=== PATIENT | female | born 1945 | race Caucasian/White ===

== ENCOUNTER 2020-02-13 07:41 | Inpatient (IN) | payer MEDICARE ==
[~2020-02-13 07:41] MED LIST: Midazolam 1 MG/ML 2 ML SDV ONE; Propofol 200 MG/20 ML SDV ONE; fentaNYL 100 MCG/2 ML SDV ONE
[2020-02-13] MEDS ORDERED: Sodium Chloride 0.9% 1,000 ML IV SCH (08:15)
--- NOTE | 2020-02-13 09:21 | PCM.HP.2 ---
H&P History of Present Illness - General Date of Service: 02/13/20 Admit Problem/Dx: Hypotension - History of Present Illness Initial Comments - Free Text/Narative: Jocelyn has been having significant abdominal pain after she eats and also is vomiting. This has been going on for several months and has lost 30 lbs. She has not noticed any blood when she vomits. She has generalized weakness. She does have heartburn. She did faint during the night last night. Her blood pressure 3 days ago was 134/94 with pulse of 90. She was admitted from the [facility] department and she was scheduled to have EGD blood pressure was found to be excessive below. Blood was drawn and creatinine was found to be 6.8. His BUN 142 and potassium 2.6 Duration of Symptoms: Reports: Other (Weight loss now over 30 pounds) Associated Symptoms: Reports: Loss of Appetite, Nausea/Vomiting, Syncope, Weakness - Related Data Allergies/Adverse Reactions: Allergies Allergy/AdvReac Type Severity Reaction Status Date / Time tramadol Allergy Rash Verified 02/13/20 08:01 Home Medications: Home Meds Rosuvastatin Calcium 20 mg PO DAILY 02/12/20 [History] amLODIPine Besylate [Amlodipine Besylate] 5 mg PO DAILY 02/12/20 [History] hydroCHLOROthiazide [Hydrochlorothiazide] 12.5 mg PO DAILY 02/12/20 [History] lisinopriL [Lisinopril] 40 mg PO DAILY 02/12/20 [History] Past Medical History Cardiovascular History: Reports: High Cholesterol, Hypertension Gastrointestinal History: Reports: GERD, Other (See Below) Other Gastrointestinal History: nausea and vomiting with abdominal pain and weightloss Genitourinary History: Reports: None 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: Musculoskeletal History: Reports: Back Pain, Chronic, Neck Pain, Chronic, Other (See Below) Dermatologic History: Reports: Eczema - Past Surgical History Cardiovascular Surgical History: Reports: None GI Surgical History: Reports: Cholecystectomy Female Surgical History: Reports: Tubal Ligation Musculoskeletal Surgical History: Reports: Knee Replacement Social & Family History - Family History Family Medical History: Noncontributory - Tobacco Use Tobacco Use Status *Q: Never Tobacco User - Caffeine Use Caffeine Use: Reports: Soda - Recreational Drug Use Recreational Drug Use: No H&P Review of Systems - Review of Systems: Review Of Systems: See Below General: Reports: Weakness, Fatigue, Decreased Appetite, Weight Loss HEENT: Reports: Vertigo Pulmonary: Reports: No Symptoms Cardiovascular: Reports: No Symptoms Gastrointestinal: Reports: Abdominal Pain, Nausea, Vomiting Musculoskeletal: Reports: No Symptoms Skin: Reports: No Symptoms Psychiatric: Reports: No Symptoms Neurological: Reports: Syncope, Difficulty Walking, Weakness, Gait Disturbance Exam - Exam Exam: See Below - Vital Signs Vital Signs: Last Vital Signs Temp 97.7 F 02/13/20 08:20 Pulse 84 02/13/20 08:20 Resp 16 02/13/20 08:20 BP 76/44 L 02/13/20 08:20 Pulse Ox - Exam General: Alert, Oriented, 4 HEENT: PERRLA, Hearing Intact, Mucosa Moist & [place], Nares Patent, Normal Nasal Septum, Posterior Pharynx Clear, Conjunctiva Clear, EOMI, EACs Clear, TMs Clear Neck: Supple, Trachea Midline, 2 Lungs: Clear to Auscultation, Normal Respiratory Effort Cardiovascular: Regular Rate, Regular Rhythm GI/Abdominal Exam: Normal Bowel Sounds, Soft, Non-Tender, No Organomegaly, No Distention, No Abnormal Bruit, No Mass, Pelvis Stable Extremities: Normal Inspection, Normal Range of Motion, Non-Tender, No Pedal Edema, Normal Capillary Refill Peripheral Pulses: 1+: Radial (L), Radial (R) Skin: Warm Neuro Extensive - Mental Status: Alert, Oriented x3, Normal Mood/Affect, Normal Cognition DTR: 1+: Bicep (L), Bicep (R) Psychiatric: Alert, Normal Affect, Normal Mood - Patient Data Result Diagrams: 02/14/20 05:11 02/14/20 05:11 Sepsis Event Note - Focused Exam Vital Signs: Vital Signs Temp Pulse Resp BP 02/13/20 08:20 97.7 F 84 16 76/44 L Problem List Initiated/Reviewed/Updated: Yes Orders Last 24hrs: Active Orders 24 hr Category Date Time Status CBC W/O DIFF,HEMOGRAM [HEME] Routine Lab 02/13/20 08:44 Ordered COMPREHENSIVE METABOLIC PN,CMP [CHEM] Routine Lab 02/13/20 08:45 Ordered TSH ULTRASENSITIVE [CHEM] Routine Lab 02/13/20 08:45 Ordered Sodium Chloride 0.9% [Normal Saline] 1,000 ml Med 02/13/20 08:15 Active IV ASDIRECTED Medication Orders Sodium Chloride (Normal Saline) 1,000 mls @ 100 mls/hr IV ASDIRECTED [facility] Last Admin: 02/13/20 08:20 Dose: 100 mls/hr Documented by: AZAR Assessment/Plan Comment:: Assessment/Plan: #1. Dehydration with #2. Acute renal failure and #3. Severe hypokalemia. She's been vomiting and she is severely dehydrated which is feeling is the cause of her renal failure as well as hypokalemia. I put her in the ICU because of her severe condition and will hydrate her and monitor her blood pressure and renal functions closely. #4. Abdominal pain: This is being evaluated as soon as she is medically stable. She has lost over 30 pounds recently. #5. Hypotension: This will hopefully improve with hydration. #6. History of HTN on medication pm the past. #7. Weight loss: Etiology unknown at the present time if there is an abdominal process causing her nausea and vomiting and lack of appetite. Some of the weight loss is of course due to severe dehydration. #8. History of HLD: - Mortality Measure Prognosis:: Good
[2020-02-13] MEDS ORDERED: Dextrose 5%-0.9% NaCl 1,000 ML IV SCH ×2 (09:45→10:00)
[2020-02-13] MEDS ORDERED: Lactated Ringers 1,000 ML IV SCH ×2 (10:00→10:45)
[2020-02-13] MEDS: Potassium Chloride 20 MEQ, Lidocaine 1% 2 ML in Sodium Chloride 0.9% 100 ML IV SCH ×6 (10:35→21:21)
[2020-02-13] MEDS ORDERED: Lactated Ringers 500 ML IV ONE (11:45)
[2020-02-13] MEDS ORDERED: Lactated Ringers 1,000 ML IV ONE (11:45)
[2020-02-13] MEDS ORDERED: Dextrose 5%-0.9% NaCl 1,000 ML IV ONE (15:45)
[2020-02-13] MEDS: Dextrose 5%-0.9% NaCl 1,000 ML IV SCH (18:45)
[2020-02-14] MEDS: Dextrose 5%-0.9% NaCl 1,000 ML IV SCH ×4 (01:15→21:00)
[2020-02-14] MEDS ORDERED: Lidocaine 1% PF 2 ML SDV IV ONE (07:30)
[2020-02-14] MEDS ORDERED: Potassium Chloride 20 MEQ in Premix Bag 1 BAG IV ONE ×2 (07:30→20:58)
[2020-02-14] MEDS ORDERED: Potassium Chloride 20 MEQ, Lidocaine 1% 2 ML in Sodium Chloride 0.9% 100 ML IV ONE (08:00)
[2020-02-14] MEDS: Potassium Chloride 20 MEQ, Lidocaine 1% 2 ML in Sodium Chloride 0.9% 100 ML IV SCH ×3 (09:38→14:07)
--- NOTE | 2020-02-14 13:23 | PCM.PN ---
- General Info Date of Service: 02/14/20 Functional Status: Reports: Pain Controlled - Review of Systems General: Reports: Weakness HEENT: Reports: No Symptoms Pulmonary: Reports: No Symptoms Cardiovascular: Reports: No Symptoms Gastrointestinal: Reports: No Symptoms Genitourinary: Reports: No Symptoms Musculoskeletal: Reports: No Symptoms Skin: Reports: No Symptoms Neurological: Reports: No Symptoms Psychiatric: Reports: No Symptoms - Patient Data Vitals - Most Recent: Last Vital Signs Temp 97.9 F 02/14/20 11:54 Pulse 83 02/14/20 12:59 Resp 20 02/14/20 12:59 BP 98/55 L 02/14/20 12:59 Pulse Ox 94 L 02/14/20 12:59 Weight - Most Recent: 213 lb 6 oz I&O - Last 24 Hours: Intake & Output 02/13/20 02/14/20 02/14/20 22:59 06:59 14:59 Intake Total 360 2549 Output Total 850 1225 Balance -490 1324 Lab Results Last 24 Hours: Laboratory Results - last 24 hr 02/13/20 02/13/20 02/13/20 Range/Units 09:05 15:13 23:55 WBC (4.5-11.0) K/uL RBC (3.30-5.50) M/uL Hgb (12.0-15.0) g/dL Hct (36.0-48.0) % MCV (80-98) fL MCH (27-31) pg MCHC (32-36) % Plt Count (150-400) K/uL Sodium 140 (140-148) mmol/L Potassium 3.7 (3.6-5.2) mmol/L Chloride 98 L (100-108) mmol/L Carbon Dioxide 37 H (21-32) mmol/L Anion Gap 8.7 (5.0-14.0) mmol/L BUN 113 H* (7-18) mg/dL Creatinine 3.9 H* (0.6-1.0) mg/dL Est Cr Clr Drug Dosing 11.39 mL/min Estimated GFR (MDRD) 11 L (>60) Glucose 206 H (74-106) mg/dL Calcium 6.9 L* (8.5-10.1) mg/dL Creatine Kinase 116 (26-192) U/L Troponin I < 0.017 (0.000-0.056) ng/mL 02/14/20 02/14/20 Range/Units 05:11 05:11 WBC 8.1 (4.5-11.0) K/uL RBC 3.88 (3.30-5.50) M/uL Hgb 11.7 L (12.0-15.0) g/dL Hct 37.5 (36.0-48.0) % MCV 97 (80-98) fL MCH 30 (27-31) pg MCHC 31 L (32-36) % Plt Count 191 (150-400) K/uL Sodium 140 (140-148) mmol/L Potassium 3.3 L (3.6-5.2) mmol/L Chloride 100 (100-108) mmol/L Carbon Dioxide 38 H (21-32) mmol/L Anion Gap 5.3 (5.0-14.0) mmol/L BUN 104 H* (7-18) mg/dL Creatinine 3.4 H (0.6-1.0) mg/dL Est Cr Clr Drug Dosing 13.06 mL/min Estimated GFR (MDRD) 13 L (>60) Glucose 199 H (74-106) mg/dL Calcium 6.8 L* (8.5-10.1) mg/dL Creatine Kinase (26-192) U/L Troponin I (0.000-0.056) ng/mL Med Orders - Current: Current Medications Dextrose/Sodium Chloride (Dextrose 5%-Normal Saline) 1,000 mls @ 150 mls/hr IV ASDIRECTED [facility] Last Admin: 02/14/20 07:27 Dose: 150 mls/hr Documented by: Potassium Chloride 20 meq/Lidocaine HCl 2 ml/ Sodium Chloride 112 mls @ 56 mls/hr IV Q2H [facility] Stop: 02/14/20 15:59 Last Admin: 02/14/20 11:50 Dose: 56 mls/hr Documented by: Discontinued Medications Fentanyl (Sublimaze) Confirm Administered Dose 100 mcg .ROUTE .STK-MED ONE Stop: 02/13/20 07:41 Sodium Chloride (Normal Saline) 1,000 mls @ 100 mls/hr IV ASDIRECTED [facility] Last Admin: 02/13/20 08:20 Dose: 100 mls/hr Documented by: Dextrose/Sodium Chloride (Dextrose 5%-Normal Saline) 1,000 mls @ 500 mls/hr IV ASDIRECTED [facility] Dextrose/Sodium Chloride (Dextrose 5%-Normal Saline) 1,000 mls @ 999 mls/hr IV ASDIRECTED [facility] Stop: 02/13/20 11:01 Last Admin: 02/13/20 09:45 Dose: 999 mls/hr Documented by: Potassium Chloride 20 meq/Lidocaine HCl 2 ml/ Sodium Chloride 112 mls @ 56 mls/hr IV Q2H [facility] Stop: 02/13/20 22:59 Last Admin: 02/13/20 21:21 Dose: 56 mls/hr Documented by: Lactated Ringer's (Ringers, Lactated) 1,000 mls @ 125 mls/hr IV ASDIRECTED [facility] Lactated Ringer's (Ringers, Lactated) 1,000 mls @ 150 mls/hr IV ASDIRECTED [facility] Last Admin: 02/13/20 10:46 Dose: 150 mls/hr Documented by: Lactated Ringer's (Ringers, Lactated) 1,000 mls @ 500 mls/hr IV .BOLUS ONE Stop: 02/13/20 13:44 Last Admin: 02/13/20 11:45 Dose: 500 mls/hr Documented by: Dextrose/Sodium Chloride (Dextrose 5%-Normal Saline) 1,000 mls @ 500 mls/hr IV ONETIME ONE Stop: 02/13/20 17:44 Last Admin: 02/13/20 15:53 Dose: 500 mls/hr Documented by: Potassium Chloride 20 meq/Lidocaine HCl 2 ml/ Sodium Chloride 112 mls @ 56 mls/hr IV ONETIME ONE Stop: 02/14/20 09:59 Last Admin: 02/14/20 07:26 Dose: 56 mls/hr Documented by: Midazolam HCl (Versed 1 Mg/Ml) Confirm Administered Dose 2 mg .ROUTE .STK-MED ONE Stop: 02/13/20 07:41 Propofol (Diprivan 20 Ml) Confirm Administered Dose 200 mg .ROUTE .STK-MED ONE Stop: 02/13/20 07:41 - Exam General: Alert, Oriented HEENT: Pupils Equal, Pupils Reactive, EOMI, Mucous Membr. Moist/[place] Neck: Supple Lungs: Clear to Auscultation, Normal Respiratory Effort Cardiovascular: Regular Rate, Regular Rhythm GI/Abdominal Exam: Normal Bowel Sounds, Soft, Non-Tender, No Organomegaly, No Distention, No Abnormal Bruit, No Mass, Pelvis Stable Back Exam: Normal Inspection, Full Range of Motion Extremities: Normal Inspection, Normal Range of Motion, Non-Tender, No Pedal Edema, Normal Capillary Refill Peripheral Pulses: 1+: Radial (L), Radial (R) Skin: Warm, Dry, Intact Neurological: No New Focal Deficit Psy/Mental Status: Alert, Normal Affect, Normal Mood Sepsis Event Note - Evaluation Sepsis Screening Result: No Definite Risk - Focused Exam Vital Signs: Vital Signs Temp Pulse Resp BP Pulse Ox 02/14/20 12:59 83 20 98/55 L 94 L 02/14/20 11:54 97.9 F 87 18 91/48 L 95 02/14/20 11:00 74 17 93/49 L 96 02/14/20 10:00 89 19 86/50 L 95 02/14/20 09:00 81 20 100/58 L 94 L 02/14/20 08:00 97.9 F 84 20 86/56 L 93 L 02/14/20 07:20 81 20 94/53 L 91 L 02/14/20 06:00 14 82/36 L 95 02/14/20 05:00 14 102/59 L 96 02/14/20 04:00 97.7 F 16 92/51 L 95 02/14/20 03:00 19 83/46 L 94 L 02/14/20 02:00 18 100/57 L 95 - Problem List Review Problem List Initiated/Reviewed/Updated: Yes - My Orders Last 24 Hours: My Active Orders 02/13/20 14:00 Communication Order [RC] QID 02/13/20 15:16 Consult to Canteen Operator [CONS] Routine 02/13/20 15:40 Central Line PICC Insertion [Central Venous Line Insertion] [OM.PC] Routine 02/13/20 Dinner Clear Liquid Diet [DIET] 02/13/20 18:45 Dextrose 5%-0.9% NaCl [Dextrose 5%-Normal Saline] 1,000 ml IV ASDIRECTED 02/13/20 20:16 Communication Order [RC] PRN 02/14/20 10:00 Potassium Chloride 20 meq Lidocaine 1% [Xylocaine 1%] 2 ml Sodium Chloride 0.9% [Normal Saline] 100 ml IV Q2H 02/14/20 18:10 BASIC METABOLIC PANEL,BMP [CHEM] Routine 02/15/20 04:49 BASIC METABOLIC PANEL,BMP [CHEM] Routine - Plan Plan:: Assessment/Plan: #1. Dehydration with #2. Acute renal failure and #3. Severe hypokalemia. She's been vomiting and she is severely dehydrated which is feeling is the cause of her renal failure as well as hypokalemia. I put her in the ICU because of her severe condition and will hydrate her and monitor her blood pressure and renal functions closely. She is making good improvement with rehydration and her creatinine is down to 3.4. Her potassium was up to 3.6 last evening and now 3.3. I will give more potassium until we get it in the 4 range. Her BUN was 142, now is 64. I will recheck her blood this afternoon at 6. #4. Abdominal pain: This is being evaluated as soon as she is medically stable. She has lost over 30 pounds recently. #5. Hypotension: This will hopefully improve with hydration. #6. History of HTN on medication in the past. #7. Weight loss: Etiology unknown at the present time if there is an abdominal process, but some of the weight loss was due to dehydration. #8. History of HLD:
[2020-02-14] MEDS: Potassium Chloride 20 MEQ Tab.ER PO SCH (21:33)
[2020-02-15] MEDS: Dextrose 5%-0.9% NaCl 1,000 ML IV SCH ×2 (05:28→14:00)
[2020-02-15] MEDS: Potassium Chloride 20 MEQ Tab.ER PO SCH ×2 (09:42→20:44)
[2020-02-15 18:35] VITALS: PULSE 90
[2020-02-15 20:36] VITALS: BP 124/78
--- NOTE | 2020-02-15 21:28 | PCM.PN ---
- General Info Date of Service: 02/15/20 Subjective Update: She is feeling much better and wanted to go home. Functional Status: Reports: Pain Controlled - Review of Systems General: Reports: No Symptoms, Weakness HEENT: Reports: No Symptoms Pulmonary: Reports: No Symptoms Cardiovascular: Reports: No Symptoms Gastrointestinal: Reports: No Symptoms Genitourinary: Reports: No Symptoms Musculoskeletal: Reports: No Symptoms Skin: Reports: No Symptoms Neurological: Reports: No Symptoms Psychiatric: Reports: No Symptoms - Patient Data Vitals - Most Recent: Last Vital Signs Temp 97.0 F 02/15/20 19:28 Pulse 90 02/15/20 18:00 Resp 16 02/15/20 19:28 BP 124/78 02/15/20 19:28 Pulse Ox 95 02/15/20 19:28 Weight - Most Recent: 213 lb 6 oz I&O - Last 24 Hours: Intake & Output 02/15/20 02/15/20 02/15/20 06:59 14:59 22:59 Intake Total 1911 570 240 Output Total 825 750 100 Balance 1086 -180 140 Lab Results Last 24 Hours: Laboratory Results - last 24 hr 02/15/20 02/15/20 Range/Units 04:05 04:05 WBC 9.3 (4.5-11.0) K/uL RBC 3.69 (3.30-5.50) M/uL Hgb 11.4 L (12.0-15.0) g/dL Hct 36.4 (36.0-48.0) % MCV 99 H (80-98) fL MCH 31 (27-31) pg MCHC 31 L (32-36) % Plt Count 177 (150-400) K/uL Percent Retic 1.5 (0.5-1.5) % Sodium 142 (140-148) mmol/L Potassium 4.2 (3.6-5.2) mmol/L Chloride 107 (100-108) mmol/L Carbon Dioxide 29 (21-32) mmol/L Anion Gap 10.2 (5.0-14.0) mmol/L BUN 57 H (7-18) mg/dL Creatinine 1.7 H (0.6-1.0) mg/dL Est Cr Clr Drug Dosing 26.12 mL/min Estimated GFR (MDRD) 29 L (>60) Glucose 176 H (74-106) mg/dL Calcium 7.2 L (8.5-10.1) mg/dL Med Orders - Current: Current Medications Dextrose/Sodium Chloride (Dextrose 5%-Normal Saline) 1,000 mls @ 125 mls/hr IV ASDIRECTED [facility] Last Admin: 02/15/20 14:00 Dose: 125 mls/hr Documented by: Potassium Chloride (Klor-Con M20) 20 meq PO BID [facility] Last Admin: 02/15/20 20:44 Dose: 20 meq Documented by: Discontinued Medications Fentanyl (Sublimaze) Confirm Administered Dose 100 mcg .ROUTE .STK-MED ONE Stop: 02/13/20 07:41 Sodium Chloride (Normal Saline) 1,000 mls @ 100 mls/hr IV ASDIRECTED [facility] Last Admin: 02/13/20 08:20 Dose: 100 mls/hr Documented by: Dextrose/Sodium Chloride (Dextrose 5%-Normal Saline) 1,000 mls @ 500 mls/hr IV ASDIRECTED [facility] Dextrose/Sodium Chloride (Dextrose 5%-Normal Saline) 1,000 mls @ 999 mls/hr IV ASDIRECTED [facility] Stop: 02/13/20 11:01 Last Admin: 02/13/20 09:45 Dose: 999 mls/hr Documented by: Potassium Chloride 20 meq/Lidocaine HCl 2 ml/ Sodium Chloride 112 mls @ 56 mls/hr IV Q2H [facility] Stop: 02/13/20 22:59 Last Admin: 02/13/20 21:21 Dose: 56 mls/hr Documented by: Lactated Ringer's (Ringers, Lactated) 1,000 mls @ 125 mls/hr IV ASDIRECTED [facility] Lactated Ringer's (Ringers, Lactated) 1,000 mls @ 150 mls/hr IV ASDIRECTED [facility] Last Admin: 02/13/20 10:46 Dose: 150 mls/hr Documented by: Lactated Ringer's (Ringers, Lactated) 1,000 mls @ 500 mls/hr IV .BOLUS ONE Stop: 02/13/20 13:44 Last Admin: 02/13/20 11:45 Dose: 500 mls/hr Documented by: Dextrose/Sodium Chloride (Dextrose 5%-Normal Saline) 1,000 mls @ 500 mls/hr IV ONETIME ONE Stop: 02/13/20 17:44 Last Admin: 02/13/20 15:53 Dose: 500 mls/hr Documented by: Dextrose/Sodium Chloride (Dextrose 5%-Normal Saline) 1,000 mls @ 150 mls/hr IV ASDIRECTED [facility] Last Admin: 02/14/20 14:18 Dose: 150 mls/hr Documented by: Potassium Chloride 20 meq/Lidocaine HCl 2 ml/ Sodium Chloride 112 mls @ 56 mls/hr IV ONETIME ONE Stop: 02/14/20 09:59 Last Admin: 02/14/20 07:26 Dose: 56 mls/hr Documented by: Potassium Chloride 20 meq/Lidocaine HCl 2 ml/ Sodium Chloride 112 mls @ 56 mls/hr IV Q2H [facility] Stop: 02/14/20 15:59 Last Admin: 02/14/20 14:07 Dose: 56 mls/hr Documented by: Potassium Chloride 20 meq/ (Premix) 100 mls @ 50 mls/hr IV ONETIME ONE Stop: 02/14/20 22:57 Last Admin: 02/14/20 21:33 Dose: 50 mls/hr Documented by: Lidocaine HCl (Xylocaine-Mpf 1%) 2 ml INJECT ONETIME ONE Stop: 02/14/20 20:59 Last Admin: 02/14/20 21:34 Dose: 2 ml Documented by: Midazolam HCl (Versed 1 Mg/Ml) Confirm Administered Dose 2 mg .ROUTE .STK-MED ONE Stop: 02/13/20 07:41 Propofol (Diprivan 20 Ml) Confirm Administered Dose 200 mg .ROUTE .STK-MED ONE Stop: 02/13/20 07:41 - Exam General: Alert, Oriented, Cooperative HEENT: Pupils Equal Neck: Supple Lungs: Clear to Auscultation, Normal Respiratory Effort Cardiovascular: Regular Rate, Regular Rhythm GI/Abdominal Exam: Normal Bowel Sounds, Soft, Non-Tender, No Organomegaly, No Distention, No Abnormal Bruit, No Mass, Pelvis Stable Back Exam: Normal Inspection, Full Range of Motion Extremities: Normal Inspection, Normal Range of Motion, Non-Tender, No Pedal Edema, Normal Capillary Refill Peripheral Pulses: 1+: Radial (L), Radial (R) Skin: Warm, Dry, Intact Neurological: No New Focal Deficit Psy/Mental Status: Alert, Normal Affect, Normal Mood Sepsis Event Note - Evaluation Sepsis Screening Result: No Definite Risk - Focused Exam Vital Signs: Vital Signs Temp Pulse Resp BP Pulse Ox 02/15/20 19:28 97.0 F 16 124/78 95 02/15/20 18:00 90 16 137/72 95 02/15/20 16:00 98.9 F 88 20 106/67 94 L 02/15/20 14:00 87 20 132/74 94 L 02/15/20 12:00 98.8 F 89 18 122/78 93 L 02/15/20 10:00 90 18 112/71 95 - Problem List Review Problem List Initiated/Reviewed/Updated: Yes - My Orders Last 24 Hours: My Active Orders 02/14/20 21:00 Dextrose 5%-0.9% NaCl [Dextrose 5%-Normal Saline] 1,000 ml IV ASDIRECTED Potassium Chloride [Klor-Con M20] 20 meq PO BID 02/15/20 13:00 Abdomen Comp [US] Routine - Plan Plan:: Assessment/Plan: #1. Dehydration resolved. #2. Acute renal failure: the creatinine is down to 1.7 she's much better I got an ultrasound of the abdomen today and will discharge home tonight. #3. Severe hypokalemia: The potassium has improved but still will need more K is 3.7 today. #4. Abdominal pain: the abdominal ultrasound did not show any acute pathology there is some fluid in the abdomen so we've cut back on the fluids and there is also apparently some fluid in the lungs but reducing the fluid intake should improve this. #5. Hypotension: This has resolved at the present time. systolic blood pressure 124/78 diastolic #6. History of HTN on medication in the past. #7. Weight loss: Etiology unknown at the present time if there is an abdominal process causing her nausea and vomiting and lack of appetite. Some of the weight loss is of course due to severe dehydration. #8. History of HLD: I will discharge home this evening and we'll see her back in the office on Monday consider further evaluations for the cause of her weight loss.
--- NOTE | 2020-02-15 21:32 | PCM.DCSUM1 ---
Discharge Summary - Hospital Course Brief History: Jocelyn has been having significant abdominal pain after she eats and also is vomiting. This has been going on for several months and has lost 30 lbs. She has not noticed any blood when she vomits. She has generalized weakness. She does have heartburn. She did faint during the night last night. Her blood pressure 3 days ago was 134/94 with pulse of 90. She was admitted from the outpatient department and she was She was scheduled to have EGD but blood pressure was found to be excessive low. Blood was drawn and creatinine was found to be 6.8. The BUN 142 and potassium 2.6 She was admitted to the ICU. - Discharge Data Discharge Date: 02/15/20 Discharge Disposition: Home, Self-Care 01 Condition: Good - Referral to Home Health Primary Care Physician: Elie Moreira Sr, MD - Patient Summary/Data Consults: Consultations 02/13/20 15:16 Consult to Living Skills Advisor [CONS] Routine Comment: Physician Instructions: Quantity: Reason for Consult: set up total parental nutrition - Discharge Plan Home Medications: Home Meds Rosuvastatin Calcium 20 mg PO DAILY 02/12/20 [History] amLODIPine Besylate [Amlodipine Besylate] 5 mg PO DAILY 02/12/20 [History] hydroCHLOROthiazide [Hydrochlorothiazide] 12.5 mg PO DAILY 02/12/20 [History] lisinopriL [Lisinopril] 40 mg PO DAILY 02/12/20 [History] - Discharge Summary/Plan Comment DC Time >30 min.: Yes Discharge Summary/Plan Comment: Assessment/Plan: #1. Dehydration resolved. #2. Acute renal failure: the creatinine is down to 1.7 she's much better I will get an ultrasound of the abdomen today and consider home depending on the report of the ultrasound. #3. Severe hypokalemia: The potassium has improved 3.7 today. #4. Abdominal pain: the abdominal ultrasound did not show any acute pathology there is some fluid in the abdomen so we've cut back on the fluids and there is also apparently some fluid in the lungs but reducing the fluid intake should improve this. #5. Hypotension: This has resolved at the present time. systolic blood pressure 124/78 diastolic #6. History of HTN on medication in the past. #7. Weight loss: Etiology unknown at the present time if there is an abdominal process causing her nausea and vomiting and lack of appetite. Some of the weight loss is of course due to severe dehydration. #8. History of HLD: I will discharge home this evening and we'll see her back in the office on Monday consider further evaluations were the cause of her weight loss. - General Info Functional Status: Reports: Pain Controlled - Review of Systems General: Reports: Weakness HEENT: Reports: No Symptoms Pulmonary: Reports: No Symptoms Cardiovascular: Reports: No Symptoms Gastrointestinal: Reports: No Symptoms Genitourinary: Reports: No Symptoms Musculoskeletal: Reports: No Symptoms Skin: Reports: No Symptoms Neurological: Reports: No Symptoms Psychiatric: Reports: No Symptoms - Patient Data Vitals - Most Recent: Last Vital Signs Temp 97.0 F 02/15/20 19:28 Pulse 90 02/15/20 18:00 Resp 16 02/15/20 19:28 BP 124/78 02/15/20 19:28 Pulse Ox 95 02/15/20 19:28 Weight - Most Recent: 213 lb 6 oz I&O - Last 24 hours: Intake & Output 02/15/20 02/15/20 02/15/20 06:59 14:59 22:59 Intake Total 1911 570 240 Output Total 825 750 100 Balance 1086 -180 140 Lab Results - Last 24 hrs: Laboratory Results - last 24 hr 02/15/20 02/15/20 Range/Units 04:05 04:05 WBC 9.3 (4.5-11.0) K/uL RBC 3.69 (3.30-5.50) M/uL Hgb 11.4 L (12.0-15.0) g/dL Hct 36.4 (36.0-48.0) % MCV 99 H (80-98) fL MCH 31 (27-31) pg MCHC 31 L (32-36) % Plt Count 177 (150-400) K/uL Percent Retic 1.5 (0.5-1.5) % Sodium 142 (140-148) mmol/L Potassium 4.2 (3.6-5.2) mmol/L Chloride 107 (100-108) mmol/L Carbon Dioxide 29 (21-32) mmol/L Anion Gap 10.2 (5.0-14.0) mmol/L BUN 57 H (7-18) mg/dL Creatinine 1.7 H (0.6-1.0) mg/dL Est Cr Clr Drug Dosing 26.12 mL/min Estimated GFR (MDRD) 29 L (>60) Glucose 176 H (74-106) mg/dL Calcium 7.2 L (8.5-10.1) mg/dL Med Orders - Current: Current Medications Dextrose/Sodium Chloride (Dextrose 5%-Normal Saline) 1,000 mls @ 125 mls/hr IV ASDIRECTED [facility] Last Admin: 02/15/20 14:00 Dose: 125 mls/hr Documented by: Potassium Chloride (Klor-Con M20) 20 meq PO BID [facility] Last Admin: 02/15/20 20:44 Dose: 20 meq Documented by: Discontinued Medications Fentanyl (Sublimaze) Confirm Administered Dose 100 mcg .ROUTE .STK-MED ONE Stop: 02/13/20 07:41 Sodium Chloride (Normal Saline) 1,000 mls @ 100 mls/hr IV ASDIRECTED [facility] Last Admin: 02/13/20 08:20 Dose: 100 mls/hr Documented by: Dextrose/Sodium Chloride (Dextrose 5%-Normal Saline) 1,000 mls @ 500 mls/hr IV ASDIRECTED [facility] Dextrose/Sodium Chloride (Dextrose 5%-Normal Saline) 1,000 mls @ 999 mls/hr IV ASDIRECTED [facility] Stop: 02/13/20 11:01 Last Admin: 02/13/20 09:45 Dose: 999 mls/hr Documented by: Potassium Chloride 20 meq/Lidocaine HCl 2 ml/ Sodium Chloride 112 mls @ 56 mls/hr IV Q2H [facility] Stop: 02/13/20 22:59 Last Admin: 02/13/20 21:21 Dose: 56 mls/hr Documented by: Lactated Ringer's (Ringers, Lactated) 1,000 mls @ 125 mls/hr IV ASDIRECTED [facility] Lactated Ringer's (Ringers, Lactated) 1,000 mls @ 150 mls/hr IV ASDIRECTED [facility] Last Admin: 02/13/20 10:46 Dose: 150 mls/hr Documented by: Lactated Ringer's (Ringers, Lactated) 1,000 mls @ 500 mls/hr IV .BOLUS ONE Stop: 02/13/20 13:44 Last Admin: 02/13/20 11:45 Dose: 500 mls/hr Documented by: Dextrose/Sodium Chloride (Dextrose 5%-Normal Saline) 1,000 mls @ 500 mls/hr IV ONETIME ONE Stop: 02/13/20 17:44 Last Admin: 02/13/20 15:53 Dose: 500 mls/hr Documented by: Dextrose/Sodium Chloride (Dextrose 5%-Normal Saline) 1,000 mls @ 150 mls/hr IV ASDIRECTED [facility] Last Admin: 02/14/20 14:18 Dose: 150 mls/hr Documented by: Potassium Chloride 20 meq/Lidocaine HCl 2 ml/ Sodium Chloride 112 mls @ 56 mls/hr IV ONETIME ONE Stop: 02/14/20 09:59 Last Admin: 02/14/20 07:26 Dose: 56 mls/hr Documented by: Potassium Chloride 20 meq/Lidocaine HCl 2 ml/ Sodium Chloride 112 mls @ 56 mls/hr IV Q2H [facility] Stop: 02/14/20 15:59 Last Admin: 02/14/20 14:07 Dose: 56 mls/hr Documented by: Potassium Chloride 20 meq/ (Premix) 100 mls @ 50 mls/hr IV ONETIME ONE Stop: 02/14/20 22:57 Last Admin: 02/14/20 21:33 Dose: 50 mls/hr Documented by: Lidocaine HCl (Xylocaine-Mpf 1%) 2 ml INJECT ONETIME ONE Stop: 02/14/20 20:59 Last Admin: 02/14/20 21:34 Dose: 2 ml Documented by: Midazolam HCl (Versed 1 Mg/Ml) Confirm Administered Dose 2 mg .ROUTE .STK-MED ONE Stop: 02/13/20 07:41 Propofol (Diprivan 20 Ml) Confirm Administered Dose 200 mg .ROUTE .STK-MED ONE Stop: 02/13/20 07:41 - Exam General: Reports: Alert, Oriented HEENT: Reports: Pupils Equal, Pupils Reactive, EOMI, Mucous Membr. Moist/[place] Neck: Reports: Supple Lungs: Reports: Clear to Auscultation, Normal Respiratory Effort Cardiovascular: Reports: Regular Rate, Regular Rhythm GI/Abdominal Exam: Normal Bowel Sounds, Soft, Non-Tender, No Organomegaly, No Distention, No Abnormal Bruit, No Mass, Pelvis Stable Back Exam: Reports: Normal Inspection, Full Range of Motion Extremities: Normal Inspection, Normal Range of Motion, Non-Tender, No Pedal Edema, Normal Capillary Refill Skin: Reports: Warm Neurological: Reports: No New Focal Deficit Psy/Mental Status: Reports: Alert, Normal Affect, Normal Mood
--- NOTE | 2020-02-17 09:56 | US ---
Abdomen Comp CLINICAL HISTORY: Heartburn, decreased appetite COMPARISON: None. FINDINGS: The liver is free of mass or biliary dilatation. There is normal parenchymal echogenicity. There is trace free fluid in the left upper quadrant The gallbladder has been removed. The common duct measures 7 mm. The pancreas is moderately obscured due to bowel gas. There is a 9 x 9 x 8 mm cyst in the right kidney, no stones or hydronephrosis seen.The aorta is not aneurysmal. The proximal aorta is obscured The inferior vena cava is unremarkable. The spleen has a normal size and shape. There is a minimal left effusion. IMPRESSION: Minimal peritoneal fluid left upper quadrant. There is also minimal left effusion. Pancreas and upper aorta are partially obscured. Small simple right renal cyst
== END 2020-02-15 21:40 | disposition home or self-care (01) | DRG 315 ==
LOC: JP.SDS 07:41 → JP.ICU 09:07 → UNDOADMIN 09:07 → JP.ICU 09:36
PROVIDERS: ADMIT Internal Medicine; ATTEND Internal Medicine
DX: I95.9 Hypotension, unspecified (principal); N17.9 Acute kidney failure, unspecified; E87.6 Hypokalemia; R10.9 Unspecified abdominal pain; E86.0 Dehydration; I10 Essential (primary) hypertension; E78.5 Hyperlipidemia, unspecified; R63.4 Abnormal weight loss; E78.00 Pure hypercholesterolemia, unspecified; K21.9 Gastro-esophageal reflux disease without esophagitis; M54.9 Dorsalgia, unspecified; M54.2 Cervicalgia; G89.29 Other chronic pain; Z90.49 Acquired absence of other specified parts of digestive tract; Z88.6 Allergy status to analgesic agent; Z79.899 Other long term (current) drug therapy
CPT/HCPCS: 36415; 76700; 76700-26; 80048; 80053; 82550; 84443; 84484; 85027; 85045; A9270-GY; J2001; J2250; J2704; J3010; J3480; J7030; J7120

== ENCOUNTER 2020-02-27 06:33 | Day surgery (SDC) | payer MEDICARE ==
[2020-02-27] MEDS ORDERED: Midazolam 1 MG/ML 2 ML SDV ONE (07:21)
[2020-02-27] MEDS ORDERED: Propofol 200 MG/20 ML SDV ONE (07:21)
[2020-02-27] MEDS ORDERED: fentaNYL 100 MCG/2 ML SDV ONE (07:21)
[2020-02-27] MEDS ORDERED: Sodium Chloride 0.9% 1,000 ML IV SCH (07:30)
[2020-02-27 09:44] VITALS: PULSE 75
[2020-02-27 09:59] VITALS: BP 120/71
--- NOTE | 2020-02-27 11:53 | PROC ---
DATE OF PROCEDURE: SURGEON: Elie Moreira MD INDICATIONS: Jocelyn is a 74-year-old female who comes in for an esophagogastroduodenoscopy. She has had difficulty swallowing and abdominal pain and comes in to have this evaluated. The risks and benefits were explained to the patient and was taken to the OR. PROCEDURE IN DETAIL: Anesthesia was given by nurse infantry assaultman. During procedure, we used 2 mg of Versed, 100 mcg of fentanyl, and 80 mg of propofol. The Olympus 180 scope was used. The tube was placed into the esophagus, noted esophageal erythema at the distal esophagus. The tube was advanced into the stomach, air was insufflated, and advanced into the first and second part of the duodenum. Upon retraction of the tube, no abnormalities were noted in the stomach. The tube was brought back into the esophagus, we noted significant erythema in the distal esophagus and there were very firm saavedra. Biopsy was done of this area. The tube was removed slowly and no other abnormality was noted. Picture was taken of the distal esophagus area. The vocal cords were unremarkable. The tube was removed. The patient tolerated the procedure well. PREOPERATIVE DIAGNOSIS: Abdominal pain, weight loss. POSTOPERATIVE DIAGNOSIS: Distal esophagus erythema. Biopsies are pending. I am concerned about the weight loss as well as abdominal pain and the architecture of the distal esophagus. Elie Moreira MD /[id number]
== END 2020-02-27 10:49 | disposition home or self-care (01) ==
LOC: JP.SDS 06:33
PROVIDERS: ATTEND Internal Medicine
DX: K22.8 Other specified diseases of esophagus (principal); Z01.812 Encounter for preprocedural laboratory examination; Z20.828 Contact with and (suspected) exposure to other viral communicable diseases; I10 Essential (primary) hypertension; E66.9 Obesity, unspecified; E78.5 Hyperlipidemia, unspecified; Z88.8 Allergy status to other drugs, medicaments and biological substances; Z68.34 Body mass index [BMI] 34.0-34.9, adult
CPT/HCPCS: 43239; J2250; J2704; J3010; J7030; U0002

== ENCOUNTER 2020-05-31 15:13 | Inpatient (IN) | payer MEDICARE ==
--- NOTE | 2020-05-31 15:38 | PCM.HP.2 ---
H&P History of Present Illness - General Date of Service: 05/31/20 Admit Problem/Dx: Admission Diagnosis/Problem Admission Diagnosis/Problem Abdominal pain Source of Information: Patient - History of Present Illness Initial Comments - Free Text/Narative: She has had several episodes of Abdominal pain which lasts 24 hrs then resolves. When I have seen her she is feeling normal. 2 days she called me and I saw her and did a CT of the Abd which showed a twisted stomach. I have spoken with Dr. Acosta she is being admitted for an evaluation pre-op to hydrate and stabilize prior to surgery in the morning. Onset of Symptoms: Reports: Other (recurrant abd pains) Improves with: Reports: Other (not eating when the pain starts) - Related Data Allergies/Adverse Reactions: Allergies Allergy/AdvReac Type Severity Reaction Status Date / Time tramadol Allergy Rash Verified 02/13/20 08:01 Home Medications: Home Meds Rosuvastatin Calcium 20 mg PO DAILY 02/12/20 [History] amLODIPine [Norvasc] 5 mg PO DAILY 02/25/20 [History] hydroCHLOROthiazide [Hydrochlorothiazide] 12.5 mg PO DAILY 02/25/20 [History] lisinopriL [Lisinopril] 40 mg PO DAILY 02/25/20 [History] Past Medical History HEENT History: Reports: None, Impaired Vision Cardiovascular History: Reports: High Cholesterol, Hypertension Gastrointestinal History: Reports: GERD, Other (See Below) Other Gastrointestinal History: nausea and vomiting with abdominal pain and weightloss Genitourinary History: Reports: None 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: Musculoskeletal History: Reports: Back Pain, Chronic, Fracture, Neck Pain, Chronic Dermatologic History: Reports: Eczema - Infectious Disease History Infectious Disease History: Reports: Chicken Pox, Measles, Mumps - Past Surgical History HEENT Surgical History: Reports: LASIK Cardiovascular Surgical History: Reports: None GI Surgical History: Reports: Cholecystectomy Female Surgical History: Reports: Tubal Ligation Musculoskeletal Surgical History: Reports: Knee Replacement Dermatological Surgical History: Reports: None Social & Family History - Family History Family Medical History: No Pertinent Family History - Caffeine Use Caffeine Use: Reports: Soda H&P Review of Systems - Review of Systems: Review Of Systems: See Below General: Reports: No Symptoms HEENT: Reports: No Symptoms Pulmonary: Reports: No Symptoms Cardiovascular: Reports: No Symptoms Gastrointestinal: Reports: No Symptoms Genitourinary: Reports: No Symptoms Musculoskeletal: Reports: No Symptoms Skin: Reports: No Symptoms Psychiatric: Reports: No Symptoms Neurological: Reports: No Symptoms Hematologic/Lymphatic: Reports: No Symptoms Exam - Exam Exam: See Below - Exam General: Alert, Oriented, 4 HEENT: PERRLA, Hearing Intact, Mucosa Moist & [place], Nares Patent, Normal Nasal Septum, Posterior Pharynx Clear, Conjunctiva Clear, EOMI, EACs Clear, TMs Clear Neck: Supple, Trachea Midline, 2 Lungs: Clear to Auscultation, Normal Respiratory Effort Cardiovascular: Regular Rate, Regular Rhythm GI/Abdominal Exam: Normal Bowel Sounds, Soft, Non-Tender, No Organomegaly, No Distention, No Abnormal Bruit, No Mass, Pelvis Stable Extremities: Normal Inspection, Normal Range of Motion, Non-Tender, No Pedal Edema, Normal Capillary Refill Peripheral Pulses: 1+: Radial (L), Radial (R) Skin: Warm, Dry, Intact Neurological: Cranial Nerves Intact, Reflexes Equal Bilateral Neuro Extensive - Mental Status: Alert, Oriented x3, Normal Mood/Affect, Normal Cognition Neuro Extensive - Motor, Sensory, Reflexes: CN II-XII Intact, Normal Gait, Normal Reflexes DTR: 1+: Bicep (L), Bicep (R) Psychiatric: Alert, Normal Affect, Normal Mood Problem List Initiated/Reviewed/Updated: Yes Orders Last 24hrs: Active Orders 24 hr Category Date Time Status Patient Status [ADT] Routine ADT 05/31/20 15:19 Ordered Bedrest Bathroom Privileges [RC] ASDIRECTED Care 05/31/20 15:24 Ordered EKG Documentation Completion [RC] ASDIRECTED Care 05/31/20 15:29 Ordered Notify Provider Consults [RC] ASDIRECTED Care 05/31/20 15:29 Ordered Oxygen Therapy [RC] PRN Care 05/31/20 15:19 Ordered Up ad Tarsha [RC] ASDIRECTED Care 05/31/20 15:24 Ordered VTE/DVT Education [RC] Per Unit Routine Care 05/31/20 15:19 Ordered Vital Signs [RC] Q4H Care 05/31/20 15:19 Ordered Consult to Physician [CONS] Routine Cons 05/31/20 15:24 Ordered Clear Liquid Diet [DIET] Diet 05/31/20 Dinner Ordered Chest 2V [CR] Routine Exams 05/31/20 15:24 Ordered CBC WITH AUTO DIFF [HEME] Routine Lab 05/31/20 15:24 Ordered COMPREHENSIVE METABOLIC PN,CMP [CHEM] Routine Lab 05/31/20 15:24 Ordered Rosuvastatin Calcium [Rosuvastatin Calcium] Med 06/01/20 09:00 Ordered 20 mg PO DAILY Sodium Chloride 0.9% @ 125 MLS/HR (1000ml) Med 05/31/20 15:30 Ordered Sodium Chloride 0.9% [Normal Saline] 1,000 ml IV ASDIRECTED amLODIPine [Norvasc] Med 06/01/20 09:00 Ordered 5 mg PO DAILY hydroCHLOROthiazide Med 06/01/20 09:00 Ordered 12.5 mg PO DAILY lisinopriL [Lisinopril] Med 06/01/20 09:00 Ordered 40 mg PO DAILY Resuscitation Status Routine Resus Stat 05/31/20 15:19 Ordered EKG 12 Lead [EK] Routine Ther 05/31/20 15:24 Ordered Medication Orders Amlodipine Besylate (Norvasc) 5 mg PO DAILY [facility] Hydrochlorothiazide (Hydrochlorothiazide) 12.5 mg PO DAILY [facility] Sodium Chloride (Normal Saline) 1,000 mls @ 125 mls/hr IV ASDIRECTED [facility] Non-Formulary Medication (Lisinopril [Lisinopril]) 40 mg PO DAILY [facility] Non-Formulary Medication (Rosuvastatin Calcium [Rosuvastatin Calcium]) 20 mg PO DAILY [facility] Assessment/Plan Comment:: Assessment/Plan: #1. Abdominal pain secondary to an esophageal hernia causing rotation of the stomach. She will have surgery tomorrow. #2. HYN: Taking Amlodipine and Lisinopril #3. HLD: Continue with Rosuvastatin #4. Elevated BMI: It would be to her health benefit to lose weight. - Mortality Measure Prognosis:: Good
[2020-05-31] MEDS: Sodium Chloride 0.9% 1,000 ML IV SCH (17:07)
[2020-06-01] MEDS: Sodium Chloride 0.9% 1,000 ML IV SCH (01:13)
[2020-06-01] MEDS ORDERED: ceFAZolin 2 GM in Sodium Chloride 0.9% 50 ML IV ONE (06:45)
[2020-06-01] MEDS ORDERED: Dextrose 5%-Lact Ringers w/KCl 1,000 ML IV SCH (07:00)
[2020-06-01] MEDS ORDERED: Ketamine 500 MG/5 ML MDV IV SCH ×3 (07:00→13:00)
--- NOTE | 2020-06-01 07:26 | PN ---
DATE OF SERVICE: 06/01/2020 SUBJECTIVE: Jocelyn is a pleasant 75-year-old female who has a paraesophageal diaphragmatic hernia and small-bowel volvulus. She is n.p.o. She reports that for several months, she has had severe abdominal pain with vomiting that lasts about 24 hours. She did have a CT scan and was admitted to the hospital per Elie Moreira MD, for preop hydration and stabilization prior to surgery. OBJECTIVE: GENERAL: Jocelyn Pack is a pleasant 75-year-old female. She is alert and orientated. VITAL SIGNS: TPR 97.6, 76, 16, blood pressure 120/65. HEENT: Negative. NECK: Supple. HEART: Regular rate and rhythm. LUNGS: Clear. ABDOMEN: Currently, she is n.p.o. soft, nontender. EXTREMITIES: Without peripheral edema. ASSESSMENT: 1. 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 2. A 3 cm left adnexal mass. 3. Chronic diverticulosis. 4. Hypertension. PLAN: 1. Schedule and have consent signed for exploratory laparoscopy possible open for repair of diaphragmatic hernia with mesh, repair of volvulus, and placement of gastrostomy tube. Case to follow, 06/01/2020, general anesthesia, TAP block with ketamine bolus and ketamine drip. Remain n.p.o. Surgeon: Kevin Acosta MD. 2. Ancef 2 g IV on-call to OR. 3. D5 LR with 20 mEq at 125 mL per hour. 4. SCDs. After preoperative evaluation and discussion of possible risks and possible complications, she wishes to proceed with surgical procedure. Penny Aguirre PA-C /[id number]
[2020-06-01] MEDS: Hydrochlorothiazide 12.5 MG Cap PO SCH (08:22)
[2020-06-01] MEDS: amLODIPine 5 MG Tab PO SCH (08:24)
--- NOTE | 2020-06-01 08:26 | PCM.PN ---
- General Info Date of Service: 06/01/20 Functional Status: Reports: Pain Controlled - Review of Systems General: Reports: No Symptoms HEENT: Reports: No Symptoms Pulmonary: Reports: No Symptoms Cardiovascular: Reports: No Symptoms Gastrointestinal: Reports: No Symptoms Neurological: Reports: No Symptoms Psychiatric: Reports: No Symptoms - Patient Data Vitals - Most Recent: Last Vital Signs Temp 97.4 F 06/01/20 08:08 Pulse 68 06/01/20 08:08 Resp 20 06/01/20 08:08 BP 117/68 06/01/20 08:08 Pulse Ox 91 L 06/01/20 08:08 Weight - Most Recent: 203 lb 9.6 oz I&O - Last 24 Hours: Intake & Output 05/31/20 06/01/20 06/01/20 22:59 06:59 14:59 Intake Total 1100 1533 Output Total 1000 Balance 1100 1533 -1000 Lab Results Last 24 Hours: Laboratory Results - last 24 hr 05/31/20 05/31/20 05/31/20 Range/Units 15:45 15:45 22:00 WBC 10.1 (4.5-11.0) K/uL RBC 4.04 (3.30-5.50) M/uL Hgb 12.2 (12.0-15.0) g/dL Hct 39.2 (36.0-48.0) % MCV 97 (80-98) fL MCH 30 (27-31) pg MCHC 31 L (32-36) % Plt Count 304 (150-400) K/uL Neut % (Auto) 71 H (36-66) % Lymph % (Auto) 15 L (24-44) % [place] % (Auto) 11 H (2-6) % Eos % (Auto) 2 (2-4) % Baso % (Auto) 0 (0-1) % Sodium 139 L (140-148) mmol/L Potassium 3.4 L (3.6-5.2) mmol/L Chloride 98 L (100-108) mmol/L Carbon Dioxide 32 (21-32) mmol/L Anion Gap 12.4 (5.0-14.0) mmol/L BUN 26 H (7-18) mg/dL Creatinine 1.6 H (0.6-1.0) mg/dL Est Cr Clr Drug Dosing 27.34 mL/min Estimated GFR (MDRD) 31 L (>60) Glucose 150 H (74-106) mg/dL Calcium 9.1 (8.5-10.1) mg/dL Total Bilirubin 0.5 D (0.2-1.0) mg/dL AST 19 (15-37) U/L ALT 21 (12-78) U/L Alkaline Phosphatase 77 (46-116) U/L Total Protein 6.8 (6.4-8.2) g/dL Albumin 3.4 (3.4-5.0) g/dL Globulin 3.4 (2.3-3.5) g/dL Albumin/Globulin Ratio 1.0 L (1.2-2.2) SARS-CoV-2 RNA ([place]ITCHIE) Negative (NEGATIVE) Med Orders - Current: Current Medications Amlodipine Besylate (Norvasc) 5 mg PO BEDTIME [facility] Ropivacaine 43 ml/Dexamethasone 8 mg/Epinephrine HCl 0.4 mg/ Sodium Chloride 34.6 ml 0 ml NERVRT ASDIRECTED [facility] Hydrochlorothiazide (Hydrochlorothiazide) 12.5 mg PO DAILY [facility] Sodium Chloride (Normal Saline) 1,000 mls @ 125 mls/hr IV ASDIRECTED [facility] Last Admin: 06/01/20 01:13 Dose: 125 mls/hr Documented by: Potassium Cl/Dextrose/Lact Ringer's (D5 Lr With 20 Meq Kcl) 1,000 mls @ 125 mls/hr IV ASDIRECTED [facility] Cefazolin Sodium/Dextrose 2 gm (/ Premix) 50 mls @ 100 mls/hr IV ONCALL ONE Stop: 06/01/20 13:29 Ketamine HCl 50 mg/ Sodium (Chloride) 50 mls @ 17.1 mls/hr IV ASDIRECTED [facility] Ketamine HCl (Ketalar) 28 mg IV ASDIRECTED [facility] Lisinopril (Prinivil) 40 mg PO BEDTIME [facility] Rosuvastatin Calcium (Crestor) 20 mg PO DAILY [facility] - Exam General: Alert, Oriented HEENT: Pupils Equal, Pupils Reactive, EOMI, Mucous Membr. Moist/[place] Neck: Supple Lungs: Clear to Auscultation, Normal Respiratory Effort Cardiovascular: Regular Rate, Regular Rhythm GI/Abdominal Exam: Normal Bowel Sounds, Soft, Non-Tender, No Organomegaly, No Distention, No Abnormal Bruit, No Mass, Pelvis Stable Back Exam: Normal Inspection, Full Range of Motion Extremities: Normal Inspection, Normal Range of Motion, Non-Tender, No Pedal Edema, Normal Capillary Refill Peripheral Pulses: 1+: Radial (L), Radial (R) Skin: Warm, Dry, Intact Psy/Mental Status: Alert, Normal Affect, Normal Mood Sepsis Event Note - Evaluation Sepsis Screening Result: No Definite Risk - Focused Exam Vital Signs: Vital Signs Temp Pulse Resp BP Pulse Ox 06/01/20 08:08 97.4 F 68 20 117/68 91 L 06/01/20 03:00 97.6 F 76 16 120/65 94 L 05/31/20 23:00 97.6 F 78 16 122/68 95 - Problem List Review Problem List Initiated/Reviewed/Updated: Yes - My Orders Last 24 Hours: My Active Orders 05/31/20 15:19 Patient Status [ADT] Routine Oxygen Therapy [RC] PRN VTE/DVT Education [RC] Per Unit Routine Vital Signs [RC] Q4H Resuscitation Status Routine 05/31/20 15:24 Bedrest Bathroom Privileges [RC] ASDIRECTED Up ad Tarsha [RC] ASDIRECTED Consult to Physician [CONS] Routine Chest 2V [CR] Routine EKG 12 Lead [EK] Routine 05/31/20 15:29 Notify Provider Consults [RC] ASDIRECTED 05/31/20 15:30 Sodium Chloride 0.9% [Normal Saline] 1,000 ml IV ASDIRECTED 06/01/20 09:00 Rosuvastatin [Crestor] 20 mg PO DAILY hydroCHLOROthiazide 12.5 mg PO DAILY 06/01/20 21:00 amLODIPine [Norvasc] 5 mg PO BEDTIME lisinopriL [Prinivil] 40 mg PO BEDTIME - Plan Plan:: Assessment/Plan: #1. Abdominal pain secondary to an esophageal hernia causing rotation of the stomach. She will have surgery tomorrow. #2. HTN: Taking Amlodipine and Lisinopril #3. HLD: Continue with Rosuvastatin #4. CRF: Creat. was 1.39 on 04/19 with eGFR of 37. Her BUN was 43. K 3.4. Will replace the K this morning IV. #5. Elevated BMI: It would be to her health benefit to lose weight. EKG reveals no acute pathology. The CXR reveals the Esophageal hernia with an aiir fluid level. In view of my evaluation and the lab. analysis I feel she is medically stable for the planned surgery.
[2020-06-01] MEDS: Potassium Chloride 20 MEQ, Lidocaine 1% 2 ML in Sodium Chloride 0.9% 100 ML IV SCH ×2 (08:57→11:41)
[2020-06-01] MEDS ORDERED: amLODIPine 5 MG Tab PO SCH (09:00)
[2020-06-01] MEDS ORDERED: Lisinopril 20 MG Tab PO SCH (09:00)
[2020-06-01] MEDS ORDERED: Rosuvastatin 10 MG Tab PO SCH (09:00)
--- NOTE | 2020-06-01 09:16 | CR ---
CHEST: 2 view CLINICAL HISTORY:Preop COMPARISON:None FINDINGS: The heart size, pulmonary vascularity and hilar structures are normal. No infiltrate effusion or pneumothorax is seen. There is a large retrocardiac hiatal hernia with an air-fluid level. There are atherosclerotic changes in the aorta. IMPRESSION: No acute cardiopulmonary process. Large hiatal hernia
[2020-06-01] MEDS ORDERED: fentaNYL 250 MCG/5 ML SDV ONE (11:01)
[2020-06-01] MEDS ORDERED: Succinylcholine 200 MG/10 ML MDV ONE (11:02)
[2020-06-01] MEDS ORDERED: Dexamethasone 4 MG/ML SDV ONE (11:02)
[2020-06-01] MEDS ORDERED: Rocuronium 50 MG/5 ML Vial ONE (11:02)
[2020-06-01] MEDS ORDERED: Neostigmine Methylsulfate 1 MG/ML 5 ML Syringe ONE (11:02)
[2020-06-01] MEDS ORDERED: Propofol 200 MG/20 ML SDV ONE (11:02)
[2020-06-01] MEDS ORDERED: Glycopyrrolate 0.2 MG/ML 5 ML MDV ONE (11:02)
[2020-06-01] MEDS ORDERED: Ondansetron 4 MG/2 ML SDV ONE (11:02)
[2020-06-01] MEDS ORDERED: Bupivacaine 0.5%/EPINEPHrine 1:200,000 50 ML MDV ONE (11:06)
[2020-06-01] MEDS ORDERED: Ketamine 50 MG in Sodium Chloride 0.9% 49.5 ML IV SCH (13:00)
[2020-06-01] MEDS ORDERED: ceFAZolin 2 GM in Premix Bag 1 BAG IV ONE (13:00)
[2020-06-01] MEDS ORDERED: Sodium Chloride 0.9% 10 ML ONE (15:22)
[2020-06-01] MEDS: Meropenem 500 MG SDV ONE ×2 (15:27→15:54)
[2020-06-01] MEDS ORDERED: diphenhydrAMINE 50 MG/ML SDV IVPUSH PRN ×2 (16:25→17:00)
[2020-06-01] MEDS ORDERED: Ondansetron 4 MG/2 ML SDV IVPUSH PRN ×2 (16:25→17:00)
[2020-06-01] MEDS ORDERED: Naloxone 0.4 MG/ML SDV IVPUSH PRN (16:25)
[2020-06-01] MEDS ORDERED: diphenhydrAMINE 25 MG Cap PO PRN (16:25)
[2020-06-01] MEDS ORDERED: HYDROmorphone/Normal Saline 15 MG/30 ML PCA IV PRN (16:25)
[2020-06-01] MEDS ORDERED: Cyclobenzaprine 10 MG Tab PO PRN (16:50)
[2020-06-01] MEDS ORDERED: Scopolamine 1.5 MG Transdermal Patch TOP PRN (16:53)
[2020-06-01] MEDS ORDERED: Acetaminophen 500 MG Tab PO PRN (17:00)
[2020-06-01] MEDS ORDERED: hydrOXYzine HCL 100 MG/2 ML SDV IM PRN (17:00)
[2020-06-01] MEDS ORDERED: Labetalol 20 MG/4 ML Syringe IVPUSH PRN (17:00)
[2020-06-01] MEDS ORDERED: Naloxone 0.4 MG/ML SDV IV PRN (17:00)
[2020-06-01] MEDS ORDERED: Metoclopramide 10 MG/2 ML SDV IVPUSH PRN (17:00)
[2020-06-01] MEDS: Acetaminophen 500 MG Tab PO SCH (17:43)
[2020-06-01] MEDS: Dextrose 5%-Lact Ringers w/KCl 1,000 ML IV SCH (19:38)
[2020-06-01] MEDS: Albuterol/Ipratropium 3.0-0.5 MG/3 ML Neb Soln INH PRN (19:40)
[2020-06-01] MEDS: ceFAZolin 2 GM in Premix Bag 1 BAG IV SCH (20:40)
[2020-06-01] MEDS: Lisinopril 20 MG Tab PO SCH (20:42)
[2020-06-01] MEDS: Heparin Sodium 5,000 Units/ML Vial SUBCUT SCH (20:42)
[2020-06-01] MEDS ORDERED: Pantoprazole 40 MG Vial IVPUSH SCH (21:00)
[2020-06-01] MEDS ORDERED: Lactated Ringers 500 ML IV SCH ×2 (22:30)
[2020-06-02] MEDS: Acetaminophen 500 MG Tab PO SCH ×3 (02:24→17:22)
[2020-06-02] MEDS ORDERED: Iohexol 647 MG/ML 50 ML SDV IVPUSH SCH (02:45)
[2020-06-02] MEDS ORDERED: Iohexol 647 MG/ML 50 ML SDV IVPUSH ONE (02:45)
[2020-06-02] MEDS: Dextrose 5%-Lact Ringers w/KCl 1,000 ML IV SCH ×2 (03:48→20:46)
[2020-06-02] MEDS: ceFAZolin 2 GM in Premix Bag 1 BAG IV SCH ×2 (05:44→12:06)
--- NOTE | 2020-06-02 07:45 | PN ---
DATE OF SERVICE: 06/02/2020 SUBJECTIVE: Jocelyn is postoperative day #1. Upper GI this morning was normal. Oral intake, 950 of clear liquids. Urine output via Lynch catheter, 1700. She did have one 500 mL lactated bolus. JOEL drain put out 85 mL of a light red drainage, and gastrostomy tube put out 600 mL of a green drainage. Pain is controlled by PLSQL DEVELOPER. She has been up ambulating, and vital signs have been stable. REVIEW OF SYSTEMS: Remainder of review of systems negative for any pertinent positives and negatives. OBJECTIVE: GENERAL: Jocelyn Pack is a pleasant 75-year-old female. VITAL SIGNS: TPR is 96.9, 66, 18. Blood pressure 127/72. HEENT: Negative. NECK: Supple. HEART: Regular rate and rhythm. LUNGS: Clear. ABDOMEN: Dressings dry and intact. Gastrostomy tube in place and JOEL drain in place as noted above. Abdominal binder is on. EXTREMITIES: Without peripheral edema. ASSESSMENT: Diagnostic laparoscopy. 1. Repair of large paraesophageal hernia with mesh. 2. Partial fundoplication. 3. Partial gastrectomy. 4. Partial omentectomy. 5. Placement of gastrostomy tube. POSTOPERATIVE DIAGNOSIS: Large paraesophageal hernia. Date of procedure, 06/01/2020. Surgeon: Kevin Acosta MD. PLAN: 1. Decrease IV to 100 mL per hour. 2. Discontinue Lynch. 3. Continue PLSQL DEVELOPER and clear liquid diet. 4. We will evaluate p.r.n. or in a.m. Penny Aguirre PA-C /[id number]
[2020-06-02] MEDS: Hydrochlorothiazide 12.5 MG Cap PO SCH (08:02)
[2020-06-02] MEDS: Heparin Sodium 5,000 Units/ML Vial SUBCUT SCH ×2 (08:02→20:44)
[2020-06-02] MEDS: amLODIPine 5 MG Tab PO SCH (08:02)
[2020-06-02] MEDS: Celecoxib 200 MG Cap PO SCH ×2 (08:02→20:44)
[2020-06-02] MEDS ORDERED: Iopamidol 612 MG/ML 50 ML SDV PO ONE (09:00)
--- NOTE | 2020-06-02 09:05 | CR ---
[facility] HISTORY: Post gastric surgery FINDINGS: Patient swallowed water-soluble contrast. Upright views of the abdomen show no evidence of extravasation or obstruction. There is a surgical drain in the left upper quadrant. There is a gastrostomy tube in place. IMPRESSION: Status post gastric surgery Gastrostomy tube in place No extravasation or obstruction seen
[2020-06-02] MEDS ORDERED: MVI, Adult with Vitamin K 10 ML, Thiamine 200 MG, Zinc/Copper/Manganese/Selenium 1 ML i... IV ONE ×8 (10:00)
[2020-06-02] MEDS: Magnesium Sulfate/Water 2 GM/50 ML BAG IV SCH ×3 (12:06→23:17)
[2020-06-02] MEDS: Rosuvastatin 10 MG Tab PO SCH (20:44)
[2020-06-02] MEDS: Pantoprazole 40 MG Tab.CR PO SCH (20:44)
[2020-06-02] MEDS: Lisinopril 20 MG Tab PO SCH (20:45)
[2020-06-02] MEDS: Albuterol/Ipratropium 3.0-0.5 MG/3 ML Neb Soln INH PRN (23:16)
--- NOTE | 2020-06-02 23:19 | PCM.PN ---
- General Info Date of Service: 06/02/20 Functional Status: Reports: Pain Controlled - Review of Systems HEENT: Denies: No Symptoms Pulmonary: Reports: No Symptoms Cardiovascular: Reports: No Symptoms Gastrointestinal: Reports: Abdominal Pain Genitourinary: Reports: No Symptoms Skin: Reports: No Symptoms Neurological: Reports: No Symptoms Psychiatric: Reports: No Symptoms - Patient Data Vitals - Most Recent: Last Vital Signs Temp 97.0 F 06/02/20 22:25 Pulse 71 06/02/20 22:25 Resp 16 06/02/20 22:25 BP 116/66 06/02/20 22:25 Pulse Ox 87 L 06/02/20 22:36 Weight - Most Recent: 203 lb 9.585 oz I&O - Last 24 Hours: Intake & Output 06/02/20 06/02/20 06/03/20 14:59 22:59 06:59 Intake Total 625 1977 Output Total 400 185 Balance 225 1792 Lab Results Last 24 Hours: Laboratory Results - last 24 hr 06/02/20 06/02/20 Range/Units 04:10 04:10 WBC 11.2 H (4.5-11.0) K/uL RBC 3.82 (3.30-5.50) M/uL Hgb 11.5 L (12.0-15.0) g/dL Hct 37.5 (36.0-48.0) % MCV 98 (80-98) fL MCH 30 (27-31) pg MCHC 31 L (32-36) % Plt Count 261 (150-400) K/uL Neut % (Auto) 92 H (36-66) % Lymph % (Auto) 4 L (24-44) % [place] % (Auto) 4 (2-6) % Eos % (Auto) 0 L (2-4) % Baso % (Auto) 0 (0-1) % Sodium 140 (140-148) mmol/L Potassium 4.8 (3.6-5.2) mmol/L Chloride 103 (100-108) mmol/L Carbon Dioxide 26 (21-32) mmol/L Anion Gap 11.1 (5.0-14.0) mmol/L BUN 19 H (7-18) mg/dL Creatinine 1.2 H (0.6-1.0) mg/dL Est Cr Clr Drug Dosing 36.39 mL/min Estimated GFR (MDRD) 44 L (>60) Glucose 243 H (74-106) mg/dL Calcium 9.1 (8.5-10.1) mg/dL Phosphorus 3.9 (2.5-4.9) mg/dL Magnesium 1.6 L (1.8-2.4) mg/dL Total Bilirubin 0.3 (0.2-1.0) mg/dL AST 18 (15-37) U/L ALT 23 (12-78) U/L Alkaline Phosphatase 60 (46-116) U/L NT-Pro-B Natriuret Pep 362 (5-450) pg/mL Total Protein 6.1 L (6.4-8.2) g/dL Albumin 2.8 L (3.4-5.0) g/dL Globulin 3.3 (2.3-3.5) g/dL Albumin/Globulin Ratio 0.9 L (1.2-2.2) Med Orders - Current: Current Medications Acetaminophen (Tylenol Extra Strength) 1,000 mg PO Q8H [facility] Last Admin: 06/02/20 17:22 Dose: 1,000 mg Documented by: Acetaminophen (Tylenol Extra Strength) 500 mg PO Q8H PRN PRN Reason: MILD PAIN Albuterol/Ipratropium (Duoneb 3.0-0.5 Mg/3 Ml) 3 ml INH ASDIRECTED PRN PRN Reason: BREATHING Last Admin: 06/01/20 19:40 Dose: 3 ml Documented by: Amlodipine Besylate (Norvasc) 5 mg PO DAILY [facility] Last Admin: 06/02/20 08:02 Dose: 5 mg Documented by: Celecoxib (Celebrex) 200 mg PO BID [facility] Last Admin: 06/02/20 20:44 Dose: 200 mg Documented by: Cyanocobalamin (Vitamin B12) 1,000 mcg IM ONETIME ONE Stop: 06/03/20 09:01 Cyclobenzaprine HCl (Flexeril) 10 mg PO Q8H PRN PRN Reason: Muscle Spasm Diphenhydramine HCl (Benadryl) 50 mg IVPUSH Q4H PRN PRN Reason: ITCHING Heparin Sodium (Porcine) (Heparin Sodium) 5,000 units SUBCUT Q12H [facility] Last Admin: 06/02/20 20:44 Dose: 5,000 units Documented by: Hydrochlorothiazide (Hydrochlorothiazide) 12.5 mg PO DAILY [facility] Last Admin: 06/02/20 08:02 Dose: 12.5 mg Documented by: Hydromorphone HCl (Dilaudid Stone Operator 15 Mg In Ns 30 Ml) 0 mg IV ASDIRECTED PRN; Protocol PRN Reason: Pain Last Admin: 06/01/20 16:44 Dose: 0.3 mg Documented by: Hydroxyzine HCl (Vistaril) 100 mg IM Q4H PRN PRN Reason: pain Potassium Cl/Dextrose/Lact Ringer's (D5 Lr With 20 Meq Kcl) 1,000 mls @ 100 mls/hr IV ASDIRECTED [facility] Last Admin: 06/02/20 20:46 Dose: 100 mls/hr Documented by: Magnesium Sulfate (Magnesium Sulfate In Water 2 Gm/50 Ml) 2 gm in 50 mls @ 25 mls/hr IV Q6H [facility] Stop: 06/04/20 07:59 Last Admin: 06/02/20 17:22 Dose: 25 mls/hr Documented by: Labetalol HCl (Normodyne) 5 mg IVPUSH Q5M PRN PRN Reason: SBP over 160 OR DBP over 95 Lisinopril (Prinivil) 40 mg PO BEDTIME [facility] Last Admin: 06/02/20 20:45 Dose: 40 mg Documented by: Metoclopramide HCl (Reglan) 10 mg IVPUSH Q6H PRN PRN Reason: NAUSEA NOT CONTROL BY ZOFRAN Naloxone HCl (Narcan) 0.1 mg IV ASDIRECTED PRN PRN Reason: decreased respiratory rate Ondansetron HCl (Zofran) 4 mg IVPUSH Q4H PRN PRN Reason: Nausea/Vomiting Pantoprazole Sodium (Protonix) 40 mg PO BEDTIME [facility] Last Admin: 06/02/20 20:44 Dose: 40 mg Documented by: Rosuvastatin Calcium (Crestor) 20 mg PO BEDTIME [facility] Last Admin: 06/02/20 20:44 Dose: 20 mg Documented by: Scopolamine (Transderm-Scop) 1.5 mg TOP Q72H PRN PRN Reason: Nausea/Vomiting Discontinued Medications Bupivacaine HCl/Epinephrine Bitart (Marcaine 0.5%/Epinephrine 1:200,000) Confirm Administered Dose 50 ml .ROUTE .STK-MED ONE Stop: 06/01/20 11:07 Ropivacaine 43 ml/Dexamethasone 8 mg/Epinephrine HCl 0.4 mg/ Sodium Chloride 34.6 ml 0 ml [facility] Last Admin: 06/01/20 14:28 Dose: 80 syringe Documented by: Dexamethasone (Decadron) Confirm Administered Dose 4 mg .ROUTE .[facility] ONE Stop: 06/01/20 11:03 Fentanyl (Sublimaze) Confirm Administered Dose 250 mcg .ROUTE .[facility] Stop: 06/01/20 11:02 Glycopyrrolate (Robinul) Confirm Administered Dose 1 mg .ROUTE .[facility] Stop: 06/01/20 11:03 Sodium Chloride (Normal Saline) 1,000 mls @ 125 mls/hr IV [facility] Last Admin: 06/01/20 01:13 Dose: 125 mls/hr Documented by: Potassium Cl/Dextrose/Lact Ringer's (D5 Lr With 20 Meq Kcl) 1,000 mls @ 125 mls/hr IV [facility] Last Admin: 06/01/20 08:28 Dose: 125 mls/hr Documented by: Cefazolin Sodium/Dextrose 2 gm (/ Premix) 50 mls @ 100 mls/hr IV ONCALL ONE Stop: 06/01/20 13:29 Last Admin: 06/01/20 13:45 Dose: 100 mls/hr Documented by: Ketamine HCl 50 mg/ Sodium (Chloride) 50 mls @ 17.1 mls/hr IV [facility] Potassium Chloride 20 meq/Lidocaine HCl 2 ml/ Sodium Chloride 112 mls @ 56 mls/hr IV Q2H [facility] Stop: 06/01/20 13:29 Last Admin: 06/01/20 11:41 Dose: 56 mls/hr Documented by: Sodium Chloride (Normal Saline) Confirm Administered Dose 10 mls @ as directed .ROUTE .[facility] Stop: 06/01/20 15:23 Potassium Cl/Dextrose/Lact Ringer's (D5 Lr With 20 Meq Kcl) 1,000 mls @ 150 mls/hr IV [facility] Last Admin: 06/02/20 03:48 Dose: 150 mls/hr Documented by: Cefazolin Sodium/Dextrose 2 gm (/ Premix) 50 mls @ 100 mls/hr IV Q8H [facility] Stop: 06/02/20 13:29 Last Admin: 06/02/20 12:06 Dose: 100 mls/hr Documented by: Lactated Ringer's (Ringers, Lactated) 500 mls @ 500 mls/hr IV .BOLUS [facility] Last Admin: 06/01/20 22:30 Dose: 500 mls/hr Documented by: Multivitamins/Minerals 10 ml/Thiamine HCl 200 mg/ Zinc 1 ml / Potassium Cl/Dextrose/Lact Ringer's 1,013 mls @ 100 mls/hr IV ONETIME ONE Stop: 06/02/20 20:07 Last Admin: 06/02/20 10:48 Dose: 100 mls/hr Documented by: Iohexol (Omnipaque-300) 50 ml IVPUSH . DIRECTED ONE Stop: 06/02/20 02:46 Last Admin: 06/02/20 08:28 Dose: Not Given Documented by: Iopamidol (Isovue-300 (61%)) 50 ml PO . DIRECTED ONE Stop: 06/02/20 09:01 Last Admin: 06/02/20 09:08 Dose: 50 ml Documented by: Ketamine HCl (Ketalar) 28 mg IV ASDIRECTED [facility] Meropenem (Merrem) Confirm Administered Dose 500 mg .ROUTE .STK-MED ONE Stop: 06/01/20 15:23 Last Admin: 06/01/20 15:54 Dose: 500 mg Documented by: Neostigmine Methylsulfate (Neostigmine) Confirm Administered Dose 5 mg .ROUTE .STK-MED ONE Stop: 06/01/20 11:03 Ondansetron HCl (Zofran) Confirm Administered Dose 4 mg .ROUTE .STK-MED ONE Stop: 06/01/20 11:03 Pantoprazole Sodium (Protonix Iv) 40 mg IVPUSH Q24H [facility] Last Admin: 06/01/20 20:42 Dose: 40 mg Documented by: Propofol (Diprivan 20 Ml) Confirm Administered Dose 200 mg .ROUTE .STK-MED ONE Stop: 06/01/20 11:03 Rocuronium [place] (Zemuron) Confirm Administered Dose 50 mg .ROUTE .STK-MED ONE Stop: 06/01/20 11:03 Sodium Chloride (Normal Saline) 500 ml IRR .STK-MED ONE Stop: 06/01/20 15:55 Last Admin: 06/01/20 15:54 Dose: 500 ml Documented by: Succinylcholine Chloride (Quelicin) Confirm Administered Dose 200 mg .ROUTE .STK-MED ONE Stop: 06/01/20 11:03 - Exam Quality Assessment: Supplemental Oxygen General: Alert, Oriented HEENT: Pupils Equal, Pupils Reactive, EOMI, Mucous Membr. Moist/[place] Lungs: Clear to Auscultation, Normal Respiratory Effort Cardiovascular: Regular Rate, Regular Rhythm GI/Abdominal Exam: Tender Extremities: Normal Inspection, Normal Range of Motion, Non-Tender, No Pedal Edema, Normal Capillary Refill Peripheral Pulses: 1+: Brachial (L), Brachial (R) Psy/Mental Status: Alert, Normal Affect, Normal Mood Sepsis Event Note - Evaluation Sepsis Screening Result: No Definite Risk - Focused Exam Vital Signs: Vital Signs Temp Pulse Resp BP BP Pulse Ox 06/02/20 22:36 87 L 06/02/20 22:25 97.0 F 71 16 116/66 90 L 06/02/20 20:45 120/72 06/02/20 19:25 93 L 06/02/20 19:10 97.4 F 69 16 120/72 93 L 06/02/20 15:00 97.1 F 62 16 125/69 94 L 06/02/20 13:07 95 - Problem List Review Problem List Initiated/Reviewed/Updated: Yes - My Orders Last 24 Hours: My Active Orders 06/02/20 21:00 Rosuvastatin [Crestor] 20 mg PO BEDTIME - Plan Plan:: Assessment/Plan: #1. Abdominal pain secondary to an esophageal hernia causing rotation of the stomach. #2. HTN: Taking Amlodipine and Lisinopril #3. HLD: Continue with Rosuvastatin #4. CRF: Creat. was 1.39 on 04/19 with eGFR of 37. Her BUN was 43. K 3.4. Will replace the K this morning IV. #5. Elevated BMI: It would be to her health benefit to lose weight. Her blood pressure is 116/66 with pulse oximetry 90 and this afternoon was 87%. Sodium is 140 potassium 4.8 liver functions are normal. I feel she is medically stable to present time.
[2020-06-03] MEDS: Acetaminophen 500 MG Tab PO SCH ×3 (01:00→18:27)
[2020-06-03] MEDS: Dextrose 5%-Lact Ringers w/KCl 1,000 ML IV SCH (05:20)
[2020-06-03] MEDS: Magnesium Sulfate/Water 2 GM/50 ML BAG IV SCH ×4 (05:20→23:08)
[2020-06-03] MEDS ORDERED: Dextrose 5%-Lact Ringers w/KCl 1,000 ML IV SCH (07:14)
--- NOTE | 2020-06-03 08:05 | PN ---
DATE OF SERVICE: 06/03/2020 SUBJECTIVE: Jocelyn'ailyn pain has been controlled. Vital signs stable. Oral intake 940. Urine output independent. G-tube put out 350, and JOEL drain put out 155 of a serosanguineous drainage. REVIEW OF SYSTEMS: Remainder of review of systems negative for any pertinent positives and negatives. OBJECTIVE: GENERAL: Jocelyn Pack is a pleasant 75-year-old female. She is alert and orientated. VITAL SIGNS: TPR 97.4, 79, 18, blood pressure 124/66. HEENT: Negative. NECK: Supple. HEART: Regular rate and rhythm. LUNGS: Clear. ABDOMEN: Dressings dry and intact. JOEL drain and gastrostomy tube as above. Abdominal binder is on. EXTREMITIES: Without peripheral edema. ASSESSMENT: Diagnostic laparoscopy with: 1. Repair of large paraesophageal hernia with mesh. 2. Partial fundoplication. 3. Partial gastrectomy. 4. Partial omentectomy. 5. Placement of gastrostomy tube. POSTOPERATIVE DIAGNOSES: 1. Large paraesophageal hernia. 2. Date of procedure: 06/01/2020. Surgeon: Kevin Acosta MD. PLAN: 1. Discontinue DRAG OUT MAN. 2. Full liquid diet. 3. Dilaudid 2 to 4 mg every 4 hours p.r.n. pain. 4. Plug G tube open if gas bloating or nausea. Unplug for a few minutes to release pressure, then re-plug tube. 5. Colace 100 mg b.i.d. 6. Dulcolax 10 mg oral b.i.d. 7. Decrease IV rate to TKO. 8. Continue use of incentive spirometer and ambulation. 9. We will evaluate p.r.n. or in a.m. Penny Aguirre PA-C /[id number]
[2020-06-03] MEDS: amLODIPine 5 MG Tab PO SCH (08:59)
[2020-06-03] MEDS: Bisacodyl 5 MG Tab PO SCH ×2 (08:59→21:13)
[2020-06-03] MEDS: Hydrochlorothiazide 12.5 MG Cap PO SCH (08:59)
[2020-06-03] MEDS: Celecoxib 200 MG Cap PO SCH ×2 (08:59→21:13)
[2020-06-03] MEDS: Docusate Sodium 100 MG Cap PO SCH ×2 (08:59→21:13)
[2020-06-03] MEDS ORDERED: Cyanocobalamin (Vitamin B12) 1,000 MCG/ML SDV IM ONE (09:00)
[2020-06-03] MEDS: Heparin Sodium 5,000 Units/ML Vial SUBCUT SCH ×2 (09:00→21:13)
[2020-06-03] MEDS: HYDROmorphone 2 MG Tab PO PRN ×2 (10:55→19:53)
--- NOTE | 2020-06-03 20:23 | PCM.PN ---
- General Info Date of Service: 06/03/20 Functional Status: Reports: Pain Controlled - Review of Systems General: Reports: Weakness HEENT: Reports: No Symptoms Pulmonary: Reports: No Symptoms Cardiovascular: Reports: No Symptoms Gastrointestinal: Reports: Abdominal Pain Genitourinary: Reports: No Symptoms Musculoskeletal: Reports: No Symptoms Psychiatric: Reports: No Symptoms - Patient Data Vitals - Most Recent: Last Vital Signs Temp 97.6 F 06/03/20 19:56 Pulse 81 06/03/20 19:56 Resp 18 06/03/20 19:56 BP 133/72 06/03/20 19:56 Pulse Ox 93 L 06/03/20 19:56 Weight - Most Recent: 203 lb 9.585 oz I&O - Last 24 Hours: Intake & Output 06/03/20 06/03/20 06/03/20 06:59 14:59 22:59 Intake Total 0096 910 6888 Output Total 370 280 535 Balance 927 470 806 Med Orders - Current: Current Medications Acetaminophen (Tylenol Extra Strength) 1,000 mg PO Q8H [facility] Last Admin: 06/03/20 18:27 Dose: 1,000 mg Documented by: Acetaminophen (Tylenol Extra Strength) 500 mg PO Q8H PRN PRN Reason: MILD PAIN Albuterol/Ipratropium (Duoneb 3.0-0.5 Mg/3 Ml) 3 ml INH ASDIRECTED PRN PRN Reason: BREATHING Last Admin: 06/02/20 23:16 Dose: 3 ml Documented by: Amlodipine Besylate (Norvasc) 5 mg PO DAILY [facility] Last Admin: 06/03/20 08:59 Dose: 5 mg Documented by: Bisacodyl (Dulcolax) 10 mg PO BID [facility] Last Admin: 06/03/20 08:59 Dose: 10 mg Documented by: Celecoxib (Celebrex) 200 mg PO BID [facility] Last Admin: 06/03/20 08:59 Dose: 200 mg Documented by: Cyclobenzaprine HCl (Flexeril) 10 mg PO Q8H PRN PRN Reason: Muscle Spasm Diphenhydramine HCl (Benadryl) 50 mg IVPUSH Q4H PRN PRN Reason: ITCHING Docusate Sodium (Colace) 100 mg PO BID [facility] Last Admin: 06/03/20 08:59 Dose: 100 mg Documented by: Heparin Sodium (Porcine) (Heparin Sodium) 5,000 units SUBCUT Q12H [facility] Last Admin: 06/03/20 09:00 Dose: 5,000 units Documented by: Hydrochlorothiazide (Hydrochlorothiazide) 12.5 mg PO DAILY [facility] Last Admin: 06/03/20 08:59 Dose: 12.5 mg Documented by: Hydromorphone HCl (Dilaudid) 2 - 4 mg PO Q4H PRN PRN Reason: Pain Last Admin: 06/03/20 19:53 Dose: 2 mg Documented by: Hydroxyzine HCl (Vistaril) 100 mg IM Q4H PRN PRN Reason: pain Magnesium Sulfate (Magnesium Sulfate In Water 2 Gm/50 Ml) 2 gm in 50 mls @ 25 mls/hr IV Q6H [facility] Stop: 06/04/20 07:59 Last Admin: 06/03/20 18:27 Dose: 25 mls/hr Documented by: Potassium Cl/Dextrose/Lact Ringer's (D5 Lr With 20 Meq Kcl) 1,000 mls @ 0 mls/hr IV ASDIRECTED [facility] Labetalol HCl (Normodyne) 5 mg IVPUSH Q5M PRN PRN Reason: SBP over 160 OR DBP over 95 Lisinopril (Prinivil) 40 mg PO BEDTIME [facility] Last Admin: 06/02/20 20:45 Dose: 40 mg Documented by: Metoclopramide HCl (Reglan) 10 mg IVPUSH Q6H PRN PRN Reason: NAUSEA NOT CONTROL BY ZOFRAN Naloxone HCl (Narcan) 0.1 mg IV ASDIRECTED PRN PRN Reason: decreased respiratory rate Ondansetron HCl (Zofran) 4 mg IVPUSH Q4H PRN PRN Reason: Nausea/Vomiting Pantoprazole Sodium (Protonix) 40 mg PO BEDTIME [facility] Last Admin: 06/02/20 20:44 Dose: 40 mg Documented by: Rosuvastatin Calcium (Crestor) 20 mg PO BEDTIME [facility] Last Admin: 06/02/20 20:44 Dose: 20 mg Documented by: Scopolamine (Transderm-Scop) 1.5 mg TOP Q72H PRN PRN Reason: Nausea/Vomiting Discontinued Medications Bupivacaine HCl/Epinephrine Bitart (Marcaine 0.5%/Epinephrine 1:200,000) Confirm Administered Dose 50 ml .ROUTE .STK-MED ONE Stop: 06/01/20 11:07 Ropivacaine 43 ml/Dexamethasone 8 mg/Epinephrine HCl 0.4 mg/ Sodium Chloride 34.6 ml 0 ml NERVRT ASDIRECTED [facility] Last Admin: 06/01/20 14:28 Dose: 80 syringe Documented by: Cyanocobalamin (Vitamin B12) 1,000 mcg IM ONETIME ONE Stop: 06/03/20 09:01 Last Admin: 06/03/20 09:11 Dose: 1,000 mcg Documented by: Dexamethasone (Decadron) Confirm Administered Dose 4 mg .ROUTE .STK-MED ONE Stop: 06/01/20 11:03 Fentanyl (Sublimaze) Confirm Administered Dose 250 mcg .ROUTE .STK-MED ONE Stop: 06/01/20 11:02 Glycopyrrolate (Robinul) Confirm Administered Dose 1 mg .ROUTE .STK-MED ONE Stop: 06/01/20 11:03 Hydromorphone HCl (Dilaudid Cnc Programmer 15 Mg In Ns 30 Ml) 0 mg IV ASDIRECTED PRN; Protocol PRN Reason: Pain Last Admin: 06/01/20 16:44 Dose: 0.3 mg Documented by: Sodium Chloride (Normal Saline) 1,000 mls @ 125 mls/hr IV ASDIRECTED [facility] Last Admin: 06/01/20 01:13 Dose: 125 mls/hr Documented by: Potassium Cl/Dextrose/Lact Ringer's (D5 Lr With 20 Meq Kcl) 1,000 mls @ 125 mls/hr IV ASDIRECTED [facility] Last Admin: 06/01/20 08:28 Dose: 125 mls/hr Documented by: Cefazolin Sodium/Dextrose 2 gm (/ Premix) 50 mls @ 100 mls/hr IV ONCALL ONE Stop: 06/01/20 13:29 Last Admin: 06/01/20 13:45 Dose: 100 mls/hr Documented by: Ketamine HCl 50 mg/ Sodium (Chloride) 50 mls @ 17.1 mls/hr IV ASDIRECTED [facility] Potassium Chloride 20 meq/Lidocaine HCl 2 ml/ Sodium Chloride 112 mls @ 56 ml s/hr IV Q2H [facility] Stop: 06/01/20 13:29 Last Admin: 06/01/20 11:41 Dose: 56 mls/hr Documented by: Sodium Chloride (Normal Saline) Confirm Administered Dose 10 mls @ as directed .ROUTE .STK-MED ONE Stop: 06/01/20 15:23 Potassium Cl/Dextrose/Lact Ringer's (D5 Lr With 20 Meq Kcl) 1,000 mls @ 150 mls/hr IV ASDIRECTED [facility] Last Admin: 06/02/20 03:48 Dose: 150 mls/hr Documented by: Cefazolin Sodium/Dextrose 2 gm (/ Premix) 50 mls @ 100 mls/hr IV Q8H [facility] Stop: 06/02/20 13:29 Last Admin: 06/02/20 12:06 Dose: 100 mls/hr Documented by: Lactated Ringer's (Ringers, Lactated) 500 mls @ 500 mls/hr IV .BOLUS [facility] Last Admin: 06/01/20 22:30 Dose: 500 mls/hr Documented by: Potassium Cl/Dextrose/Lact Ringer's (D5 Lr With 20 Meq Kcl) 1,000 mls @ 100 mls/hr IV ASDIRECTED [facility] Last Admin: 06/03/20 05:20 Dose: 100 mls/hr Documented by: Multivitamins/Minerals 10 ml/Thiamine HCl 200 mg/ Zinc 1 ml / Potassium Cl/Dextrose/Lact Ringer's 1,013 mls @ 100 mls/hr IV ONETIME ONE Stop: 06/02/20 20:07 Last Admin: 06/02/20 10:48 Dose: 100 mls/hr Documented by: Iohexol (Omnipaque-300) 50 ml IVPUSH . DIRECTED ONE Stop: 06/02/20 02:46 Last Admin: 06/02/20 08:28 Dose: Not Given Documented by: Iopamidol (Isovue-300 (61%)) 50 ml PO . DIRECTED ONE Stop: 06/02/20 09:01 Last Admin: 06/02/20 09:08 Dose: 50 ml Documented by: Ketamine HCl (Ketalar) 28 mg IV ASDIRECTED [facility] Meropenem (Merrem) Confirm Administered Dose 500 mg .ROUTE .STK-MED ONE Stop: 06/01/20 15:23 Last Admin: 06/01/20 15:54 Dose: 500 mg Documented by: Neostigmine Methylsulfate (Neostigmine) Confirm Administered Dose 5 mg .ROUTE .STK-MED ONE Stop: 06/01/20 11:03 Ondansetron HCl (Zofran) Confirm Administered Dose 4 mg .ROUTE .STK-MED ONE Stop: 06/01/20 11:03 Pantoprazole Sodium (Protonix Iv) 40 mg IVPUSH Q24H [facility] Last Admin: 06/01/20 20:42 Dose: 40 mg Documented by: Propofol (Diprivan 20 Ml) Confirm Administered Dose 200 mg .ROUTE .STK-MED ONE Stop: 06/01/20 11:03 Rocuronium [place] (Zemuron) Confirm Administered Dose 50 mg .ROUTE .STK-MED ONE Stop: 06/01/20 11:03 Sodium Chloride (Normal Saline) 500 ml IRR .STK-MED ONE Stop: 06/01/20 15:55 Last Admin: 06/01/20 15:54 Dose: 500 ml Documented by: Succinylcholine Chloride (Quelicin) Confirm Administered Dose 200 mg .ROUTE .STK-MED ONE Stop: 06/01/20 11:03 - Exam General: Alert, Oriented HEENT: Pupils Equal, Pupils Reactive, EOMI, Mucous Membr. Moist/[place] Lungs: Clear to Auscultation, Normal Respiratory Effort Cardiovascular: Regular Rate, Regular Rhythm GI/Abdominal Exam: Soft, Tender Extremities: Normal Inspection, Normal Range of Motion, Non-Tender, No Pedal Edema, Normal Capillary Refill Sepsis Event Note - Evaluation Sepsis Screening Result: No Definite Risk - Focused Exam Vital Signs: Vital Signs Temp Temp Pulse Resp BP BP Pulse Ox 06/03/20 19:56 97.6 F 81 18 133/72 93 L 06/03/20 15:00 97.1 F 72 16 116/72 94 L 06/03/20 14:33 94 L 06/03/20 11:09 97.6 F 81 20 117/58 L 93 L 06/03/20 08:59 124/66 - Problem List Review Problem List Initiated/Reviewed/Updated: Yes - My Orders Last 24 Hours: My Active Orders 06/02/20 21:00 Rosuvastatin [Crestor] 20 mg PO BEDTIME - Plan Plan:: Assessment/Plan: #1. Abdominal pain secondary to an esophageal hernia causing rotation of the stomach. Improving #2. HTN: Taking Amlodipine and Lisinopril #3. HLD: Continue with Rosuvastatin #4. CRF: Creat. was 1.3 #5. Elevated BMI: It would be to her health benefit to lose weight. Her blood pressure is 133/72 She is making good progress.
[2020-06-03] MEDS: Lisinopril 20 MG Tab PO SCH (21:12)
[2020-06-03] MEDS: Rosuvastatin 10 MG Tab PO SCH (21:13)
[2020-06-03] MEDS: Pantoprazole 40 MG Tab.CR PO SCH (21:13)
[2020-06-04] MEDS: Acetaminophen 500 MG Tab PO SCH ×2 (02:49→09:01)
[2020-06-04] MEDS: Magnesium Sulfate/Water 2 GM/50 ML BAG IV SCH (05:02)
--- NOTE | 2020-06-04 08:10 | DISCH ---
ADMISSION DIAGNOSES: 1. Abdominal pain. 2. Nausea, vomiting. 3. Gastroesophageal reflux disease. 4. Hypertension. 5. Hyperlipidemia. DISCHARGE DIAGNOSES: Diagnostic laparoscopy with. 1. Repair of large paraesophageal hernia with mesh. 2. Partial fundoplication. 3. Partial gastrectomy. 4. Partial omentectomy. 5. Placement of gastrostomy tube. POSTOPERATIVE DIAGNOSES: Large paraesophageal hernia. Date of procedure: 06/01/2020. Surgeon: Kevin Acosta MD. Jocelyn is a pleasant 75-year-old female with intermittent abdominal pain, nausea, and vomiting. After preoperative evaluation and discussion of possible risks and possible complications, she wished to proceed with surgical procedure. HOSPITAL COURSE: Jocelyn was admitted on 05/31/2020 and her surgery was on 06/01/2020. She had no operative complications. On postoperative day 1, IV rate was decreased. Her Lynch was discontinued. She continued with the VOCATIONAL COUNSELOR for pain management, started on a clear liquid diet. On postoperative day 2, diet was advanced to a full liquid diet, changed to oral pain medication. Gastrostomy tube was plugged and she was started on bowel stimulation. On postoperative day 3, vital signs were stable. Activity good. Oral intake adequate. She received dietary instruction and she was able to be discharged to home with no complications. PHYSICAL EXAMINATION: GENERAL: Jocelyn Pack is a 75-year-old female. VITAL SIGNS: Height is 5 feet 4.96 inches. Weight is 203 pounds. TPR is 97.1, 84, 18. Blood pressure 126/67. HEENT: Negative. NECK: Supple. HEART: Regular rate and rhythm. LUNGS: Clear. ABDOMEN: Gastrostomy tube is intact, sutured in place, currently plugged. Trocar incisions look good. Sutures intact, healing well. Abdominal binder is on. EXTREMITIES: Without peripheral edema. DISPOSITION: Discharged to home. CONDITION: Stable and improving. FOLLOWUP: Appointment with Kevin Acosta MD, on 06/10/2020 at 9 a.m. HOME MEDICATIONS: Dilaudid 2 mg every 6 hours p.r.n. pain #28. She is to resume home medications. Acetaminophen 1000 mg q.8 hours p.r.n. pain, Benadryl 50 mg p.o. bedtime p.r.n., hydrochlorothiazide 12.5 mg p.o. daily, amlodipine or Norvasc 5 mg p.o. daily, rosuvastatin calcium 20 mg p.o. daily, lisinopril 40 mg p.o. daily. DIET: Full liquid diet for 2 weeks. ACTIVITY: No lifting greater than 10 pounds for 6 weeks. Other activity: Walk 6 times inside your house. Driving: Do not drive for 1 week and within 8 hours of taking oral Dilaudid. Shower/bathing: May shower. Keep operative site clean and dry. Wear abdominal binder for 6 weeks. DISCHARGE INSTRUCTIONS: Notify provider if any fever, increased pain, swelling, redness, drainage, nausea, vomiting. Other Instructions: 1. Use incentive spirometer 10 times every hour while awake for 1 week. 2. Open the end of gastrostomy tube and empty if you feel full, bloated, gassy or nauseated. /[id number]
[2020-06-04] MEDS: Docusate Sodium 100 MG Cap PO SCH (09:01)
[2020-06-04] MEDS: Hydrochlorothiazide 12.5 MG Cap PO SCH (09:01)
[2020-06-04] MEDS: Heparin Sodium 5,000 Units/ML Vial SUBCUT SCH (09:02)
[2020-06-04] MEDS: Celecoxib 200 MG Cap PO SCH (09:02)
[2020-06-04] MEDS: amLODIPine 5 MG Tab PO SCH (09:02)
[2020-06-04] MEDS: Bisacodyl 5 MG Tab PO SCH (09:02)
[2020-06-04] MEDS: HYDROmorphone 2 MG Tab PO PRN (09:09)
[2020-06-04 10:28] VITALS: BP 123/63; PULSE 78
--- NOTE | 2020-06-04 10:42 | PCM.SN.2 ---
- Free Text/Narrative Note: Jocelyn Pack is a 75 year old female who is in a post operative state following Repair of a Large Paraesophageal Hernia. Post Operatively she has required oxygen 2 - 3 liters to maintain her oximetry levels above 90 %. At room air at rest her oximetry level is 85%. She was evaluated for Home Oxygen Therapy. Diagnosis: Hypoxia. Oxygen will be needed per nasal cannula at 2 - 3 liters for 99 months. Penny Jacobs 06/04/2020
--- NOTE | 2020-06-07 13:00 | OR ---
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 OPERATIVE PROCEDURE: Diagnostic laparoscopy with: 1. Repair of large paraesophageal diaphragmatic hernia with mesh and partial fundoplication (52470). 2. Partial gastrectomy (17450). 3. Partial omentectomy (91964). 4. Placement of tube gastrostomy (79053). ANESTHESIA: General. NEGATIVE TURNER: Penny Aguirre PA-C INDICATIONS FOR PROCEDURE: Please see progress note dated earlier today. Potential risks of the procedure including bleeding, infection, injury to the viscera, problems with recurrence of the hernia over time, and possible problems with dysphagia and/or gas bloat syndrome or disorders of gastric emptying were reviewed along with possibility of cardiopulmonary, septic, or hemorrhagic complications leading to and the patient wishes to proceed. DETAILS OF PROCEDURE: The patient was taken to the operating room, and after general endotracheal anesthesia was induced, was placed in a lithotomy position. Lynch catheter was inserted and the abdomen prepped and draped. 15 cm inferior and 5 cm left of the xiphoid process a transverse incision was made. Peritoneal cavity entered under direct vision with an Optiview trocar, inflated to 15 mmHg pressure with CO2. Laparoscope was reinserted. No underlying trocar insertion site injuries were seen. Bilateral transverse abdominis plane blocks were then placed after which 5 additional trocars were placed across the upper mid abdomen. The patient upon elevation of liver was noted as expected to have a large paraesophageal hernia with essentially the entire stomach being up into the chest. This was reduced at this point. A large volume of omentum was also present within the hernia and this was reduced. Some of the edges of the omentum at this point appeared to be ischemic and were resected with CHAPO rakesh. As when further dissected the diaphragmatic hernia away from the edges of the diaphragm, an edge of stomach was also noted to be ischemic and somewhat hemorrhagic, and this was resected with CHAPO rakesh as well. At this point, then the hernia sac was able to be grasped and this essentially with downward traction turned inside out and was able to be excised flush with the edges of the diaphragm laterally on each side anteriorly and over the anterior aspect of stomach and duodenum. At that point, an Barbara tube was placed per Anesthesia across the length of the esophagus and into the stomach to help identify the edges of those structures. The esophagus was then dissected free from the mediastinal attachments and a retroesophageal window established. Further dissection eventually led to a 4 to 5 cm length of intraabdominal esophagus. A crural repair was then accomplished using a series of 0 Ethibond sutures reinforced with PTFE pledgets placed posteriorly. Phasix ST mesh was then cut in a horseshoe-type configuration and was laid across the diaphragmatic repair and then fixed to the crura on each side with titanium tacking screws. A partial fundoplication bringing the fundus posteriorly underneath the retroesophageal window was then placed. This was affixed to the diaphragm more or less at 11 o'clock position through the diaphragm on the right side of the esophagus with some 0 Ethibond sutures reinforced with PTFE pledgets. Tighter fundoplication in this case while preventing reflux would likely result in quite a bit in the way of untoward dysphagia. At this point, the tube gastrostomy was fashioned. The junction of the mid and upper thirds of the greater curvature of the stomach was selected for the gastrostomy tube site. Gastrostomy was placed at that location through the 5 mm trocar site, which was placed in the left subcostal area. A 16-[place] Lynch catheter was then placed. This was then inserted into the gastrostomy and inflated with 10 mL of saline. The gastrostomy was then closed with a pursestring stitch of 2-0 Vicryl stitch. Once this was tied and the gastrostomy tube was pulled up snugly against the abdominal wall where the suture was then continued up against the abdominal wall, 3 additional sutures including some tacking omentum were then placed around the gastrostomy tube as well to the abdominal wall with care taken to avoid of the gastrostomy tube during suturing process. At that point, no further problems were noted. A Bradley-Watters drain was taken through the left lateral trocar site and positioned up into the area of the supradiaphragmatic hiatus to remove any fluid that might have accumulated in that area. The staple lines along the stomach were reinforced with some fibrin sealant and the abdomen irrigated with antibiotic-containing saline solution. The trocars were then sequentially removed. The peritoneal cavity deflated. The incision was closed with some 4-0 Vicryl skin stitch, which was also used to fix the drain and the patient taken to the recovery room in satisfactory condition. Physician supply chain assistant, Penny Aguirre PA-C, played an essential role in assisting in this case, helping to position the patient, retract structures as needed, as well as suturing and cutting sutures as indicated. Her presence improved patient safety and decreased operative time. Kevin Acosta MD /[id number]
--- NOTE | 2020-06-07 13:34 | PN ---
DATE OF SERVICE: 06/01/2020 This is a 75-year-old female who has been here over the weekend per Dr. Elie Moreira with a large paraesophageal diaphragmatic hernia. This intermittently has become quite symptomatic. On Monday, the patient developed quite a bit in the way of abdominal pain, and a CT scan was obtained, which confirmed a large paraesophageal diaphragmatic hernia with the antrum being up more or less in the chest. She was admitted for observation with the patient being in n.p.o. status. The pain resolved, and the plan is to proceed with a diagnostic laparoscopy and laparotomy if necessary and repair of the diaphragmatic hernia with mesh. This would include most likely a partial fundoplication and placement of tube gastrostomy to help fix the stomach in position to limit chances of having the diaphragmatic hernia recur. Potential risks of the procedure were reviewed with the patient this morning, and she wishes to proceed. Surgery will be undertaken later on today. Kevin Acosta MD /[id number]
== END 2020-06-04 14:11 | disposition home or self-care (01) | DRG 326 ==
LOC: JP.MS 15:13
PROVIDERS: ADMIT Internal Medicine; ATTEND Surgery
PROC: 0BUT4JZ Supplement Diaphragm with Synthetic Substitute, Percutaneous Endoscopic Approach (ICD-10-PCS; principal; 2020-06-01)
PROC: 0DV44ZZ Restriction of Esophagogastric Junction, Percutaneous Endoscopic Approach (ICD-10-PCS; 2020-06-01)
PROC: 0DB64ZZ Excision of Stomach, Percutaneous Endoscopic Approach (ICD-10-PCS; 2020-06-01)
PROC: 0DBU4ZZ Excision of Omentum, Percutaneous Endoscopic Approach (ICD-10-PCS; 2020-06-01)
PROC: 0D9640Z Drainage of Stomach with Drainage Device, Percutaneous Endoscopic Approach (ICD-10-PCS; 2020-06-01)
DX: K44.9 Diaphragmatic hernia without obstruction or gangrene (principal); K56.2 Volvulus; K55.069 Acute infarction of intestine, part and extent unspecified; K21.9 Gastro-esophageal reflux disease without esophagitis; E78.5 Hyperlipidemia, unspecified; H54.7 Unspecified visual loss; E78.00 Pure hypercholesterolemia, unspecified; G89.29 Other chronic pain; M54.9 Dorsalgia, unspecified; K31.89 Other diseases of stomach and duodenum; M54.2 Cervicalgia; Z96.659 Presence of unspecified artificial knee joint; I12.9 Hypertensive chronic kidney disease with stage 1 through stage 4 chronic kidney disease, or unspecified chronic kidney disease; N18.9 Chronic kidney disease, unspecified; R79.89 Other specified abnormal findings of blood chemistry; Z20.822 Contact with and (suspected) exposure to COVID-19; K57.30 Diverticulosis of large intestine without perforation or abscess without bleeding; N85.9 Noninflammatory disorder of uterus, unspecified; Z88.5 Allergy status to narcotic agent; Z79.899 Other long term (current) drug therapy; Z90.49 Acquired absence of other specified parts of digestive tract; Z98.51 Tubal ligation status
CPT/HCPCS: 36415; 71046; 71046-26; 74240; 74240-26; 80053; 83735; 83880; 84100; 85025; 88302; 88307; 93005; 94640; 94762; 97110-GP; 97162-GP; 97530-GP; 97535-GP; A9270-GY; C1713; C1781; C9113; J0171; J0330; J0690; J1100; J1170; J1644; J2001; J2185; J2405; J2704; J2710; J2795; J3010; J3411; J3420; J3475; J3480; J3490; J7030; J7620-GY; Q9967; U0002